=== PATIENT | male | born 1930 | race Caucasian/White ===

== ENCOUNTER 2017-02-28 07:08 | Emergency (ER) | payer MEDICARE ==
[2017-02-28 07:24] VITALS: BP 147/75
--- NOTE | 2017-02-28 07:53 | UC ---
Ear Complaint HPI - HPI Summary HPI Summary: PAST WEEK OR SO HAS NOTICED HEARING IS MUTED. RIGHT WORSE THAN LEFT. NO PAIN. NO URI SX. STATES HE HAS HAD TROUBLE WITH WAX BUILD-UP PAST 6 MONTHS OR SO AND HAS HAD EARS FLUSHED TWICE. WENT TO PCP YESTERDAY BUT THEY DO NOT DO EAR FLUSHES. WAS TOLD THEY WOULD SET HIM UP WITH ENT BUT DID NOT GET A CALL SO CAME HERE. - History of Current Complaint Chief Complaint: UCEar Stated Complaint: EARS ARE PLUGGED Time Seen by Provider: 02/28/17 07:44 Hx Obtained From: Patient Onset/Duration: Gradual Onset, Lasting Weeks, Still Present Severity Initially: Moderate Severity Currently: Moderate Pain Intensity: 0 Pain Scale Used: 0-10 Numeric Aggravating Factors: Nothing Alleviating Factors: Nothing Associated Signs/Symptoms: Positive: Hearing Loss - Allergies/Home Medications Allergies/Adverse Reactions: Allergies Allergy/AdvReac Type Severity Reaction Status Date / Time Penicillins Allergy Hives Verified 04/10/16 07:10 Home Medications: Home Medications Aspirin [Francisco Aspirin 325 MG] 325 mg PO 02/28/17 [History] Turin-3 Fatty Acids [Fish Oil] 1,000 mg PO 02/28/17 [History] PMH/Surg Hx/FS Hx/Imm Hx Endocrine History Of: Reports: Diabetes, Thyroid Disease, Hypothyroidism Cardiovascular History Of: Reports: Cardiac Disorders - [place] 02/25/2012, Hypertension - On meds, Myocardial Infarction Respiratory History Of: Denies: COPD, Asthma GI/ History Of: Denies: Ulcer - Surgical History Surgical History: Yes Surgery Procedure, Year, and Place: spinal stenosis - surgical repair -at 79 years old. TURP. left knee surg x2. fco - Family History Known Family History: Positive: Cardiac Disease, Hypertension - Social History Alcohol Use: None Substance Use Type: None Smoking Status (MU): Never Smoked Tobacco - Immunization History Most Recent Tetanus Shot: 02/04/13 Review of Systems Constitutional: Negative Skin: Negative ENT: Other - DECREASED HEARING Respiratory: Negative Cardiovascular: Negative Gastrointestinal: Negative All Other Systems Reviewed And Are Negative: Yes Physical Exam Triage Information Reviewed: Yes Appearance: Well-Appearing, No Pain Distress, Well-Nourished Vital Signs: Initial Vital Signs Temp 98.4 F 02/28/17 07:17 Pulse 58 02/28/17 07:17 Resp 16 02/28/17 07:17 BP 147/75 02/28/17 07:17 Pulse Ox 97 02/28/17 07:17 Vital Signs Reviewed: Yes Eyes: Positive: Conjunctiva Clear ENT: Positive: Hearing grossly normal, Pharynx normal, Other: - RIGHT EAC FULL OF WAX. LEFT EAC WITH SMALL AMOUNT OF NON OBSTRUCTIVE WAX Neck: Positive: Supple Respiratory: Positive: No respiratory distress, No accessory muscle use Cardiovascular: Positive: Pulses Normal Abdomen Description: Positive: Soft Musculoskeletal: Positive: No Edema Neurological: Positive: Alert Psychological: Positive: Age Appropriate Behavior Skin: Negative: rashes Ear Complaint Course/Dx - Course Course Of Treatment: BILATERAL EACS SUCCESSFULLY IRRIGATED BY RN. - Differential Dx/Diagnosis Provider Diagnoses: BILATERAL CERUMEN IMPACTION Discharge - Discharge Plan Condition: Stable Disposition: HOME Patient Education Materials: Cerumen Impaction (ED) Referrals: Guillermo Hightower MD [Medical Doctor] - If Needed Pj Nguyen MD [Primary Care Provider] - If Needed Additional Instructions: FOR MAINTENANCE, PUT SEVERAL DROPS OF OIL (MINERAL OIL, VEGETABLE OIL, OLIVE OIL , CANOLA OIL...) IN EACH EAR ONCE WEEKLY. YOU CAN ALSO USE THE OVER THE COUNTER EAR WAX TREATMENT. THIS WILL HELP KEEP THE WAX SOFT AND WILL HOPEFULLY PREVENT BUILDUP IN THE FUTURE. IF CERUMEN BUILDUP STILL OCCURS IT WILL LIKELY BE EASIER TO IRRIGATE. DO NOT USE QTIPS OTHER THAN TO CLEAN SUPERFICIALLY THIS PUSHES THE WAX FURTHER INTO THE EAR CANAL.
== END 2017-02-28 08:25 | disposition home or self-care (01) ==
LOC: UCEAST 07:08
DX: H61.23 Impacted cerumen, bilateral (principal); E11.9 Type 2 diabetes mellitus without complications; E03.9 Hypothyroidism, unspecified; I25.2 Old myocardial infarction; I10 Essential (primary) hypertension; Z88.0 Allergy status to penicillin
CPT/HCPCS: 99211; G0463

== ENCOUNTER 2017-08-16 14:26 | Emergency (ER) | payer MEDICARE, OTHER ==
[2017-08-16 14:36] VITALS: BP 130/57
--- NOTE | 2017-08-16 14:59 | UC ---
Ear Complaint HPI - HPI Summary HPI Summary: 87 YEAR OLD MALE PRESENTS WITH COMPLAINS OF RIGHT EAR CERUMEN IMPACTION. - History of Current Complaint Chief Complaint: UCEar Stated Complaint: EARS PLUGGED Time Seen by Provider: 08/16/17 14:57 Hx Obtained From: Patient Onset/Duration: Sudden Onset Severity Initially: Moderate Severity Currently: Moderate Pain Scale Used: 0-10 Numeric - 1 Associated Signs/Symptoms: Positive: Foreign Body Sensation - Allergies/Home Medications Allergies/Adverse Reactions: Allergies Allergy/AdvReac Type Severity Reaction Status Date / Time Penicillins Allergy Hives Verified 04/10/16 07:10 PMH/Surg Hx/FS Hx/Imm Hx Previously Healthy: Yes - Surgical History Surgical History: Yes Surgery Procedure, Year, and Place: spinal stenosis - surgical repair -at 79 years old. TURP. left knee surg x2. fco - Family History Known Family History: Positive: Cardiac Disease, Hypertension - Social History Alcohol Use: None Substance Use Type: None Smoking Status (MU): Never Smoked Tobacco - Immunization History Most Recent Tetanus Shot: 02/04/13 Review of Systems Constitutional: Negative Skin: Negative Eyes: Negative ENT: Other - RIGHT EAR CERUMEN IMPACTION Respiratory: Negative Cardiovascular: Negative Gastrointestinal: Negative Genitourinary: Negative Motor: Negative Neurovascular: Negative Musculoskeletal: Negative Neurological: Negative Psychological: Negative All Other Systems Reviewed And Are Negative: Yes Physical Exam Triage Information Reviewed: Yes Vital Signs: Initial Vital Signs Temp 36.5 C 08/16/17 14:33 Pulse 62 08/16/17 14:33 Resp 16 08/16/17 14:33 BP 130/57 08/16/17 14:33 Pulse Ox 99 08/16/17 14:33 Vital Signs Reviewed: Yes Eye Exam: Normal ENT Exam: Normal Dental Exam: Normal Neck exam: Normal Neck: Positive: 1 Respiratory Exam: Normal Cardiovascular Exam: Normal Abdominal Exam: Normal Musculoskeletal Exam: Normal Neurological Exam: Normal Psychological Exam: Normal Skin Exam: Normal Ear Complaint Course/Dx - Differential Dx/Diagnosis Provider Diagnoses: RIGHT EAR CERUMEN IMPACTION Discharge - Discharge Plan Condition: Stable Disposition: HOME Prescriptions: Neomyc/Polym/HC 1% OTIC SUSP* [Cortisporin Otic Susp 1%*] 4 drop RIGHT EAR QID # 1 btl Patient Education Materials: Cerumen Impaction (ED) Referrals: Pj Nguyen MD [Primary Care Provider] -
== END 2017-08-16 15:47 | disposition home or self-care (01) ==
LOC: UCEAST 14:26
DX: H61.21 Impacted cerumen, right ear (principal); Z88.0 Allergy status to penicillin
CPT/HCPCS: 99212; G0463

== ENCOUNTER 2018-08-03 16:03 | Emergency (ER) | payer MEDICARE, OTHER ==
--- OUTSIDE RECORDS SUMMARY | 2018-08-03 16:10 | XMS REPORT ---
:1930 External Reference #:[id number] [facility] Address [address] [place] [address] Phone [phone] Care Team Providers Name Role Phone Eva Mccabe MD Primary Care Physician Unavailable Payers Type Date Identification Numbers Payment Provider Subscriber Medicare Primary Effective: Policy Number: Medicare Manjeet Cabrera 1994 [id number] PayID: [id number] [facility] [address] [place] [address] Medigap Part B Policy Number: [id number] [facility] Benefit Plan Manjeet Naidu Latrell Group Number: [id number] [facility] PayID: [id number] [place] [address] Advance Directives Type Date Description Status Comment Other Directive 07/28/2015 Health Care Proxy Current and Verified Problems Date Description Provider Status Onset: 08/01/2011 Benign essential hypertension Pj Nguyen M.D. Active Onset: 08/01/2011 Gastroesophageal reflux disease Pj Nguyen M.D. Active Onset: 08/01/2011 Hypothyroidism Pj Nguyen M.D. Active Onset: 08/01/2011 Anxiety state Pj Nguyen M.D. Active Onset: 08/01/2011 Low back pain Pj Nguyen M.D. Active Onset: 02/29/2012 Coronary arteriosclerosis Pj Nguyen M.D. Active Onset: 07/13/2015 Enthesopathy of hip region Gris Costa M.D. 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 Active Onset: 09/09/2015 Pure hypercholesterolemia Pj Nguyen M.D. Active Onset: 02/26/2018 Dizziness and giddiness Oswaldo Otero M.D. Active Onset: 02/26/2018 Minimal cognitive impairment Oswaldo Otero M.D. Active Onset: 02/26/2018 Chronic fatigue syndrome Oswaldo Otero M.D. Active Onset: 04/02/2018 History of cerebrovascular accident Oswaldo Otero M.D. Active without residual deficits Onset: 04/02/2018 Altered mental status Oswaldo Otero M.D. Active Onset: 04/02/2018 Amnesia Oswaldo Otero M.D. Active Onset: 07/24/2018 Paroxysmal ventricular tachycardia Oswaldo Otero M.D. Active Family History Date Family Member(s) Problem(s) Comments General Cancer Father due to Cancer () - ? site; age 61 Mother due to Natural Causes () - age 90. ? 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 Hand Dominance Right-handed Cigarette Use Quit smoking in 1953 ETOH Use Denies alcohol use Smoking Patient is a former smoker Recreational Drug Use Never Used Drugs Daily Caffeine Consumes on average 1 cup of regular coffee per day Allergies, Adverse Reactions, Alerts Date Description Reaction Status Severity Comments 05/23/2007 PCN active Medications Medication Date Status Form Strength Qnty SIG Indications Ordering Provider Chlorothiazide 04/26 Active Tablets 250mg 90tab take 1 Ishaan s tablet by NAZARIO Manriquez mouth daily Valsartan 03/13 Active Tablets 80mg 90tab Take 1 Ishaan s Tablet By NAZARIO Manriquez Mouth Every Day Aspirin Active Tablets DR 325mg 1 po qd Simvastatin Active Tablets 10mg 90tab 1 by mouth Wyatt /0000 s every day Marla Terry M.D. Fish Oil Active Capsules 1000mg 1 by mouth Unknown every day Areds Active bid Unknown Glucosamine Active 1100 1 daily Unknown Complex Meloxicam Active Tablets 15mg 1 by mouth Unknown / every day Catheteters Active use 3 times Unknown daily Levoxyl Active Tablets 75mcg 90tab Take 1 Ishaan s Tablet By NAZARIO Manriquez Mouth Every Day Meloxicam 06/02 Hx Tablets 15mg 30tab take 1 tab M25.551 Gris s by mouth Igor, - with food M.D. 09/17 once a day /2016 Medrol 09/21 Hx TBPK 4mg 21uni as directed M54.16 ts Igor, - M.D. 10/10 Naproxen 06/12 Hx Tablets 500mg 60tab not taking 715.15 Gris s 1 tablet Igor, - with food M.D. 08/30 by mouth once a day Chlorothiazide 11/29 Hx Tablets 500mg 90tab Take 1 Pj E. s Tablet By Wendy, - Mouth Every M.D. Levothyroxine 01/09 Hx Tablets 75mcg 90tab Take 1 Pj E. s Tablet By Wendy, - Mouth Every M.D. Chlorothiazide 01/09 Hx Tablets 500mg 90tab Take 1 Pj E. s Tablet By Wendy, - Mouth Every M.D. Guiatuss ac 09/16 Hx Syrup 100-10mg/ 200ml 5-10 ml po 466.0 Wilfrido 5ML qid prn Zara Moran M.D.,[facility] 02/27 Azithromycin 09/16 Hx Tablets 250mg 6tabs 2 qd for 1 466.0 Wilfrido day, then 1 DTed Bullock, - qd Genna,[facility] 02/27 Ilotycin 09/16 Hx Ointment 5mg/GM 1tube topical 372.30 both eye Marla Bullock, - 5x/day Genna,FACP 02/27 Glucosamine 08/01 Hx Capsules 500mg 1 po bid Pj Santillan Zara Nguyen M.D. 09/17 Jointflex 08/01 Hx Cream 3.1% Pj Santillan Zara Nguyen M.D. 09/08 Remeron 10/05 Hx Tablets 15mg 30tab 1 cap hs s Abdi Zuñiga M.D. 01/31 Paxil 09/29 Hx Tablets 20mg 30tab 1/2 tab x 1 300.01 s week then 1 Pachikara - tab daily , Genna 10/05 Ambien 09/21 Hx Tablets 10mg 30tab / to 1 780.52 s tab hs prn Abdi Zuñiga M.D. 10/05 Buspirone HCL 10/07 Hx Tablets 10mg 90tab 1 1/2 po Pj Ted s bid Zara Nguyen M.D. 01/12 Omeprazole 08/[address] 20mg 90cap 1 po bid Pj Ted s Zara Nguyen M.D. 01/31 Neurontin 01/28 Hx Capsules 300mg 150ca 1 po qd for ps 2 Wendy, - days,bidx3d M.D. 07/13 ays tid Neurontin 09/19 Hx Capsules 300mg 90cap 1 po qd for Pj Santillan s 2 days then Wendy, - increase to M.D. 01/13 bid for days then tid. Glucosamine/Ramesh 09/10 Hx Capsules 1 PO qd Pj Santillan dro Zara Nguyen M.D. 08/01 Centrum Silver 09/10 Hx Tablets 1 PO qd Pj Santillan Zara Nguyen M.D. 02/27 Fluticasone 07/16 Hx Suspension 50mcg/Act 1unit 1 spray Pj Santillan Propionate s each Wendy, - nostril in M.DTed 01/13 Naproxen 10/01 Hx Tablets 500mg 90tab 1 po qd to Pj Ann2006 s tid prn Zara Nguyen M.D. 02/28 Zithromax Z-Bo 08/09 Hx Tablets 250mg 1Pack as per Pj Santillan directions Zara Nguyen M.D. 07/16 Naproxen 05/24 Hx Tablets 500mg 90tab 1 PO qd Pj Santillan s Zara Nguyen M.D. 10/01 Chlorthiazide Hx 500mg. 90uni 1 po qd Pj E. /0000 ts Zara Nguyen M.D. 09/08 Diovan Hx Tablets 80mg 90tab 1 by mouth Pj E. /0000 s every day Zara Nguyen M.D. 03/13 Diovan Hx Tablets 80mg 90tab Take 1 Pj E. /0000 s Tablet By Wendy - Mouth Every M.Marla Nitrostat Hx Tablets Sub 0.4mg 25tab one sl Unknown /0000 s q5min up to - 3 doses prn 03/06 Preservision 00 Hx Capsules Areds 2 take one Unknown Areds 2 /0000 cap in the - evening 10/10 Vitamin B 12 Hx Lozenges 250mcg by mouth Unknown /0000 every day - 02/25 Centrum Silver Hx Tablets 1 by mouth Unknown /0000 every day - 02/25 Medications Administered in Office Medication Date Status Form Strength Qnty SIG Indications Ordering Provider Inj, Administered Injection Kelsea Mccormack, 018 Tomasuman, FINISHING LAB TECHNICIAN 0.1 MG Technetium TC Administered Injection Wyatt D. 99M 018 Genna Terry Tetrofosmin, Per Unit Dose Up To 40 Millicuries Technetium TC Administered Injection Wyatt D. 99M 018 Genna Terry Tetrofosmin, Per Unit Dose Up To 40 Millicuries Influenza Administered Injection Unknown Virus Vaccine 015 Immunizations CPT Code Status Date Vaccine Lot # [id number] Given 07/14/2017 Influenza Virus Vaccine, Quadrivalent, Split, [id number] Preservative Free 14476 Given 09/09/2015 Tdap - Tetanus/Diptheria/Acellular Pertussis [id number] 55099 Given 07/30/2014 Influenza Virus Vaccine, Quadrivalent, Split, Preservative Free [id number] Given 03/06/2014 Pneumococcal Conjugate Vaccine 13 Valent For [id number] Intramuscular Use [id number] Given 08/01/2011 Fluzone Vaccine [id number] 15937 Given 09/03/2010 Influenza Virus 3Yrs & Over [id number] 94063 Given 08/20/2008 Influenza Virus 3Yrs & Over 62222 Given 08/28/2007 Influenza Virus 3Yrs & Over 81244 Given 07/20/2004 Td (History By Patient) 66077 Given Unknown Influenza Virus Vaccine, Quadrivalent, Split Virus, Im Use Vital Signs Date Vital Result Comment 07/27/2018 Height 67 inches 5'7" Weight 161.00 lb Heart Rate 62 /min BP Systolic Sitting 130 mmHg lue reg cuff BP Diastolic Sitting 58 mmHg lue reg cuff BP Systolic Standing 128 mmHg BP Diastolic Standing 62 mmHg Respiratory Rate 16 /min BMI (Body Mass Index) 25.2 kg/m2 Ejection Fraction 65-70% 04/06/2018 echo 07/24/2018 Height 67 inches 5'7" Weight 156.00 lb Heart Rate 62 /min BP Systolic Sitting 130 mmHg BP Diastolic Sitting 72 mmHg Respiratory Rate 16 /min BMI (Body Mass Index) 24.4 kg/m2 06/29/2018 Height 67 inches 5'7" Weight 162.00 lb w/shoes Heart Rate 54 /min BP Systolic Sitting 146 mmHg Lue reg cuff BP Diastolic Sitting 70 mmHg Lue reg cuff BP Systolic Standing 138 mmHg Lue reg cuff BP Diastolic Standing 72 mmHg Lue reg cuff BMI (Body Mass Index) 25.4 kg/m2 Ejection Fraction 65-70% Echo 04/06/18 04/02/2018 Height 67 inches 5'7" Weight 157.00 lb Heart Rate 64 /min BP Systolic Sitting 138 mmHg BP Diastolic Sitting 70 mmHg Respiratory Rate 16 /min BMI (Body Mass Index) 24.6 kg/m2 03/20/2018 Height 67 inches 5'7" Weight 158.25 lb Heart Rate 61 /min BP Systolic 136 mmHg BP Diastolic 76 mmHg Body Temperature 96.7 F O2 % BldC Oximetry 94 % BMI (Body Mass Index) 24.8 kg/m2 02/26/2018 Height 67 inches 5'7" Weight 160.38 lb Heart Rate 60 /min BP Systolic Sitting 126 mmHg BP Diastolic Sitting 78 mmHg Respiratory Rate 16 /min BMI (Body Mass Index) 25.1 kg/m2 11/22/2017 Height 67 inches 5'7" Weight 157.00 lb No shoes Heart Rate 60 /min BP Systolic Sitting 126 mmHg Rue reg cuff BP Diastolic Sitting 70 mmHg Rue reg cuff BP Systolic Standing 130 mmHg Rue reg cuff BP Diastolic Standing 72 mmHg Rue reg cuff Respiratory Rate 15 /min BMI (Body Mass Index) 24.6 kg/m2 Ejection Fraction 72% 04/25/2012-echo 11/16/2017 Weight 160.50 lb Heart Rate 59 /min BP Systolic Sitting 118 mmHg BP Diastolic Sitting 76 mmHg Body Temperature 96.4 F O2 % BldC Oximetry 94 % 09/18/2017 Height 67 inches 5'7" Weight 159.00 lb Heart Rate 59 /min BP Systolic Sitting 118 mmHg BP Diastolic Sitting 74 mmHg Body Temperature 98.1 F O2 % BldC Oximetry 93 % BMI (Body Mass Index) 24.9 kg/m2 09/01/2017 Height 67.5 inches 5'7.50" Weight 158.00 lb Heart Rate 76 /min BP Systolic 130 mmHg BP Diastolic 76 mmHg Body Temperature 97.5 F O2 % BldC Oximetry 97 % BMI (Body Mass Index) 24.4 kg/m2 07/14/2017 Height 67.5 inches 5'7.50" Weight 152.00 lb Heart Rate 57 /min BP Systolic 145 mmHg BP Diastolic 75 mmHg BMI (Body Mass Index) 23.5 kg/m2 06/02/2017 Height 67 inches 5'7" Weight 153.00 lb Heart Rate 61 /min BP Systolic 139 mmHg BP Diastolic 70 mmHg BMI (Body Mass Index) 24.0 kg/m2 04/26/2017 Height 67 inches 5'7" Weight 159.38 lb Heart Rate 62 /min BP Systolic 140 mmHg BP Diastolic 80 mmHg Body Temperature 97.8 F BMI (Body Mass Index) 25.0 kg/m2 03/16/2017 Height 67 inches 5'7" Weight 156.00 lb Heart Rate 60 /min BP Systolic Sitting 122 mmHg BP Diastolic Sitting 80 mmHg Respiratory Rate 15 /min Body Temperature 97.0 F O2 % BldC Oximetry 98 % BMI (Body Mass Index) 24.4 kg/m2 02/27/2017 Weight 158.00 lb Heart Rate 78 /min BP Systolic Sitting 132 mmHg BP Diastolic Sitting 82 mmHg Respiratory Rate 14 /min Body Temperature 98.2 F O2 % BldC Oximetry 97 % 10/11/2016 Height 67 inches 5'7" Weight 157.00 lb Heart Rate 56 /min BP Systolic Sitting 128 mmHg right arm, reg cuff BP Diastolic Sitting 68 mmHg right arm, reg cuff BP Systolic Standing 124 mmHg right arm, reg cuff BP Diastolic Standing 68 mmHg right arm, reg cuff Respiratory Rate 16 /min BMI (Body Mass Index) 24.6 kg/m2 Ejection Fraction 72% 04/25/12 09/21/2016 Height 67 inches 5'7" Weight 155.00 lb Pain Level 5 BMI (Body Mass Index) 24.3 kg/m2 09/15/2016 Weight 159.00 lb Heart Rate 59 /min BP Systolic Sitting 132 mmHg BP Diastolic Sitting 74 mmHg O2 % BldC Oximetry 94 % 09/05/2016 Height 67 inches 5'7" Weight 155.00 lb Heart Rate 58 /min BP Systolic 164 mmHg BP Diastolic 75 mmHg BMI (Body Mass Index) 24.3 kg/m2 04/13/2016 Heart Rate 59 /min BP Systolic Sitting 116 mmHg BP Diastolic Sitting 64 mmHg Body Temperature 98.1 F O2 % BldC Oximetry 98 % 03/15/2016 Height 66 inches 5'6" Weight 157.00 lb BP Systolic Sitting 138 mmHg BP Diastolic Sitting 62 mmHg Body Temperature 96.1 F BMI (Body Mass Index) 25.3 kg/m2 10/16/2015 Height 67 inches 5'7" Weight 159.50 lb w/ shoes Heart Rate 58 /min reg BP Systolic Sitting 112 mmHg Rue, reg cuff BP Diastolic Sitting 60 mmHg Rue, reg cuff BP Systolic Standing 108 mmHg Rue BP Diastolic Standing 54 mmHg Rue Respiratory Rate 18 /min BMI (Body Mass Index) 25.0 kg/m2 Ejection Fraction 72% as of 04/25/12 echo 09/09/2015 Height 67 inches 5'7" Weight 160.00 lb Heart Rate 60 /min BP Systolic 122 mmHg BP Diastolic 72 mmHg Body Temperature 97.3 F BMI (Body Mass Index) 25.1 kg/m2 07/13/2015 Height 67 inches 5'7" Weight 153.00 lb Pain Level 3 BMI (Body Mass Index) 24.0 kg/m2 06/12/2015 Height 67 inches 5'7" Weight 153.00 lb Heart Rate 143 /min BP Systolic 143 mmHg BP Diastolic 74 mmHg Pain Level 5 BMI (Body Mass Index) 24.0 kg/m2 04/09/2015 Weight 156.25 lb Heart Rate 61 /min BP Systolic Sitting 128 mmHg BP Diastolic Sitting 74 mmHg Body Temperature 98.4 F O2 % BldC Oximetry 98 % 03/09/2015 Height 66.75 inches 5'6.75" Weight 156.00 lb Heart Rate 60 /min BP Systolic Sitting 120 mmHg BP Diastolic Sitting 62 mmHg Body Temperature 97.0 F O2 % BldC Oximetry 98 % BMI (Body Mass Index) 24.6 kg/m2 10/10/2014 Height 66.75 inches 5'6.75" Weight 157.00 lb with shoes Heart Rate 62 /min regular BP Systolic Sitting 118 mmHg right arm reg cuff BP Diastolic Sitting 76 mmHg right arm reg cuff BP Systolic Standing 116 mmHg right arm reg cuff BP Diastolic Standing 80 mmHg right arm reg cuff Respiratory Rate 18 /min BMI (Body Mass Index) 24.8 kg/m2 09/08/2014 Height 66.75 inches 5'6.75" Weight 155.25 lb Heart Rate 60 /min BP Systolic Sitting 120 mmHg BP Diastolic Sitting 72 mmHg Body Temperature 96.7 F BMI (Body Mass Index) 24.5 kg/m2 03/06/2014 Height 66.75 inches 5'6.75" Weight 156.25 lb Heart Rate 64 /min BP Systolic Sitting 110 mmHg BP Diastolic Sitting 50 mmHg Body Temperature 98.5 F BMI (Body Mass Index) 24.7 kg/m2 10/03/2013 Height 66 inches 5'6" Weight 156.00 lb without shoes Heart Rate 54 /min reg BP Systolic Sitting 114 mmHg R arm reg cuff BP Diastolic Sitting 70 mmHg R arm reg cuff BP Systolic Standing 116 mmHg R arm reg cuff BP Diastolic Standing 70 mmHg R arm reg cuff Respiratory Rate 16 /min BMI (Body Mass Index) 25.2 kg/m2 09/13/2013 Heart Rate 58 /min BP Systolic Sitting 122 mmHg BP Diastolic Sitting 72 mmHg 09/06/2013 Weight 159.25 lb Heart Rate 63 /min BP Systolic Sitting 120 mmHg BP Diastolic Sitting 70 mmHg 08/05/2013 Weight 160.75 lb Heart Rate 64 /min BP Systolic Sitting 142 mmHg BP Diastolic Sitting 80 mmHg Body Temperature 96.9 F O2 % BldC Oximetry 97 % 03/06/2013 Height 67 inches 5'7" Weight 161.00 lb Heart Rate 68 /min BP Systolic Sitting 118 mmHg BP Diastolic Sitting 70 mmHg BMI (Body Mass Index) 25.2 kg/m2 02/07/2013 Height 67 inches 5'7" Weight 161.25 lb Heart Rate 72 /min BP Systolic Sitting 136 mmHg BP Diastolic Sitting 72 mmHg BMI (Body Mass Index) 25.3 kg/m2 08/31/2012 Height 67 inches 5'7" Weight 166.00 lb Heart Rate 68 /min BP Systolic Sitting 124 mmHg BP Diastolic Sitting 88 mmHg BMI (Body Mass Index) 26.0 kg/m2 02/29/2012 Height 67.5 inches 5'7.50" Weight 173.75 lb Heart Rate 80 /min BP Systolic Sitting 142 mmHg BP Diastolic Sitting 78 mmHg BMI (Body Mass Index) 26.8 kg/m2 09/16/2011 Weight 177.00 lb Heart Rate 82 /min BP Systolic Sitting 120 mmHg BP Diastolic Sitting 80 mmHg Body Temperature 97.8 F lt ear 08/01/2011 Height 66.75 inches 5'6.75" Weight 173.00 lb Heart Rate 72 /min BP Systolic Sitting 112 mmHg BP Diastolic Sitting 72 mmHg BMI (Body Mass Index) 27.3 kg/m2 01/31/2011 Height 68 inches 5'8" Weight 174.00 lb Heart Rate 62 /min BP Systolic Sitting 116 mmHg BP Diastolic Sitting 72 mmHg BMI (Body Mass Index) 26.5 kg/m2 10/19/2010 Weight 169.00 lb Heart Rate 60 /min BP Systolic Sitting 160 mmHg BP Diastolic Sitting 88 mmHg 09/29/2010 Heart Rate 60 /min BP Systolic 150 mmHg BP Diastolic 80 mmHg 09/21/2010 Heart Rate 55 /min BP Systolic Sitting 150 mmHg BP Diastolic Sitting 78 mmHg 09/06/2010 Weight 174.00 lb Heart Rate 67 /min BP Systolic Sitting 160 mmHg BP Diastolic Sitting 80 mmHg 07/08/2010 Weight 180.00 lb Heart Rate 55 /min BP Systolic Sitting 150 mmHg BP Diastolic Sitting 82 mmHg 01/12/2010 Height 67 inches 5'7" Weight 176.00 lb down 4# Heart Rate 56 /min BP Systolic Sitting 120 mmHg BP Diastolic Sitting 70 mmHg BMI (Body Mass Index) 27.6 kg/m2 10/07/2009 Weight 180.00 lb Heart Rate 60 /min BP Systolic Sitting 114 mmHg BP Diastolic Sitting 62 mmHg 09/03/2009 Weight 179.00 lb Heart Rate 60 /min BP Systolic Sitting 128 mmHg BP Diastolic Sitting 70 mmHg 08/03/2009 Heart Rate 60 /min BP Systolic Sitting 138 mmHg BP Diastolic Sitting 78 mmHg Body Temperature 96.9 F 07/13/2009 Weight 182.00 lb Heart Rate 60 /min BP Systolic Sitting 128 mmHg BP Diastolic Sitting 76 mmHg 04/06/2009 Height 66 inches 5'6" Weight 180.00 lb Heart Rate 56 /min BP Systolic Sitting 130 mmHg BP Diastolic Sitting 80 mmHg BMI (Body Mass Index) 29.0 kg/m2 01/13/2009 Height 68 inches 5'8" Weight 118.50 lb Heart Rate 55 /min BP Systolic Sitting 136 mmHg BP Diastolic Sitting 80 mmHg Respiratory Rate 16 /min BMI (Body Mass Index) 18.0 kg/m2 09/10/2008 Height 68 inches 5'8" Weight 182.00 lb Heart Rate 56 /min BP Systolic Sitting 144 mmHg BP Diastolic Sitting 80 mmHg BMI (Body Mass Index) 27.7 kg/m2 07/16/2008 Height 68 inches 5'8" Weight 179.00 lb Heart Rate 68 /min BP Systolic Sitting 150 mmHg BP Diastolic Sitting 90 mmHg BMI (Body Mass Index) 27.2 kg/m2 01/14/2008 Height 68 inches 5'8" Weight 180.00 lb Heart Rate 72 /min BP Systolic Sitting 122 mmHg BP Diastolic Sitting 80 mmHg BMI (Body Mass Index) 27.4 kg/m2 08/09/2007 Height 68 inches 5'8" Weight 182.00 lb Heart Rate 64 /min BP Systolic Sitting 136 mmHg BP Diastolic Sitting 84 mmHg BMI (Body Mass Index) 27.7 kg/m2 05/24/2007 Height 68 inches 5'8" Weight 178.00 lb Heart Rate 48 /min BP Systolic Sitting 114 mmHg BP Diastolic Sitting 70 mmHg BMI (Body Mass Index) 27.1 kg/m2 Results Test Date Test Result H/L Range Note Basic Metabolic Panel 04/05/2018 Sodium 137 mmol/L Low 139-145 Potassium 4.5 mmol/L 3.5-5.0 Chloride 103 mmol/L 101-111 Co2 Carbon Dioxide 26 mmol/L 22-32 Anion Gap 8 mmol/L 2-11 Glucose 94 mg/dL 70-100 Blood Urea Nitrogen 33 mg/dL High 6-24 Creatinine 1.61 mg/dL High 0.67-1.17 BUN/Creatinine Ratio 20.5 High 8-20 Calcium 9.2 mg/dL 8.6-10.3 Egfr Non- 40.6 >60 Egfr 52.2 >60 1 Lipid Profile (Trig/Chol/HDL) 03/06/2018 Triglycerides 65 mg/dL 2 Cholesterol 104 mg/dL 3 HDL Cholesterol 38.3 mg/dL 4 LDL Cholesterol 53 mg/dL 5 Laboratory test finding 02/26/2018 TSH (Thyroid Stim Horm) 5.06 mcIU/mL 0.34-5.60 Free T4 (Free Thyroxine) 0.82 ng/dL 0.61-1.12 Vitamin B12 And Folate Serum 02/26/2018 Vitamin B12 1151 pg/mL High 180- 914 6 Folic Acid (Folate) > 20.00 ng/mL >3.99 Laboratory test finding 02/26/2018 Erythrocyte Sed Rate 7 mm/Hr 0-40 Homocysteine 13 mcmol/L 7 Comp Metabolic Panel 02/26/2018 Sodium 139 mmol/L 139-145 Potassium 4.2 mmol/L 3.5-5.0 Chloride 108 mmol/L 101-111 Co2 Carbon Dioxide 27 mmol/L 22-32 Anion Gap 4 mmol/L 2-11 Calcium 9.3 mg/dL 8.6-10.3 Albumin 4.5 g/dL 3.2-5.2 Total Bilirubin 0.50 mg/dL 0.2-1.0 Glucose 82 mg/dL 70-100 Blood Urea Nitrogen 30 mg/dL High 6-24 Creatinine 1.55 mg/dL High 0.67-1.17 BUN/Creatinine Ratio 19.4 8-20 Total Protein 6.9 g/dL 6.4-8.9 Globulin 2.4 g/dL 2-4 Albumin/Globulin Ratio 1.9 1-3 Alkaline Phosphatase 71 U/L 34-104 Alt 21 U/L 7-52 Ast 23 U/L 13-39 Egfr Non- 42.4 >60 Egfr 54.6 >60 8 CBC Auto Diff 02/26/2018 White Blood Count 6.2 10^3/uL 3.5-10.8 Red Blood Count 4.48 10^6/uL 4.0-5.4 Hemoglobin 14.2 g/dL 14.0-18.0 Hematocrit 41 % Low 42-52 Mean Corpuscular Volume 92 fL 80-94 Mean Corpuscular Hemoglobin 32 pg High 27-31 Mean Corpuscular HGB Conc 35 g/dL 31-36 Red Cell Distribution Width 13 % 10.5-15 Platelet Count 130 10^3/uL Low 150-450 Mean Platelet Volume 8.5 um3 7.4-10.4 Abs Neutrophils 4.0 10^3/uL 1.5-7.7 Abs Lymphocytes 1.5 10^3/uL 1.0-4.8 Abs Monocytes 0.5 10^3/uL 0-0.8 Abs Eosinophils 0.3 10^3/uL 0-0.6 Abs Basophils 0 10^3/uL 0-0.2 Abs Nucleated RBC 0 10^3/uL Granulocyte % 64.2 % 38-83 Lymphocyte % 23.8 % Low 25-47 Monocyte % 7.3 % High 0-7 Eosinophil % 4.0 % 0-6 Basophil % 0.7 % 0-2 Nucleated Red Blood Cells % 0.2 Comp Metabolic Panel 03/15/2017 Sodium 138 mmol/L 133-145 9 Potassium 4.2 mmol/L 3.5-5.0 9 Chloride 106 mmol/L 101-111 9 Co2 Carbon Dioxide 26 mmol/L 22-32 9 Anion Gap 6 mmol/L 2-11 9 Glucose 91 mg/dL 70-100 9 Blood Urea Nitrogen 35 mg/dL High 6-24 9 Creatinine 1.64 mg/dL High 0.67-1.17 9 BUN/Creatinine Ratio 21.3 High 8-20 9 Calcium 9.3 mg/dL 8.6-10.3 9 Total Protein 7.0 g/dL 6.4-8.9 9 Albumin 4.4 g/dL 3.2-5.2 9 Globulin 2.6 g/dL 2-4 9 Albumin/Globulin Ratio 1.7 1-3 9 Total Bilirubin 1.00 mg/dL 0.2-1.0 9 Alkaline Phosphatase 55 U/L 34-104 9 Alt 20 U/L 7-52 9 Ast 21 U/L 13-39 9 Egfr Non- 39.8 >60 9 Egfr 51.2 >60 9, 10 Lipid Profile (Trig/Chol/HDL) 03/15/2017 Triglycerides 77 mg/dL 9, 11 Cholesterol 110 mg/dL 9, 12 HDL Cholesterol 43.4 mg/dL 9, 13 LDL Cholesterol 51 mg/dL 9, 14 Laboratory test finding 03/15/2017 TSH (Thyroid Stim 3.93 mcIU/mL 0.34- 5.60 9, 15 Horm) Comp Metabolic Panel 03/15/2017 Sodium 140 mmol/L 133-145 9 Potassium 4.5 mmol/L 3.5-5.0 9 Chloride 107 mmol/L 101-111 9 Co2 Carbon Dioxide 28 mmol/L 22-32 9 Anion Gap 5 mmol/L 2-11 9 Glucose 98 mg/dL 70-100 9 Blood Urea Nitrogen 32 mg/dL High 6-24 9 Creatinine 1.51 mg/dL High 0.67-1.17 9 BUN/Creatinine Ratio 21.2 High 8-20 9 Calcium 9.4 mg/dL 8.6-10.3 9 Total Protein 6.9 g/dL 6.4-8.9 9 Albumin 4.4 g/dL 3.2-5.2 9 Globulin 2.5 g/dL 2-4 9 Albumin/Globulin Ratio 1.8 1-3 9 Total Bilirubin 0.80 mg/dL 0.2-1.0 9 Alkaline Phosphatase 64 U/L 34-104 9 Alt 22 U/L 7-52 9 Ast 22 U/L 13-39 9 Egfr Non- 43.8 >60 9 Egfr 56.4 >60 9, 16 Lipid Profile (Trig/Chol/HDL) 03/15/2017 Triglycerides 67 mg/dL 9, 17 Cholesterol 100 mg/dL 9, 18 HDL Cholesterol 38.3 mg/dL 9, 19 LDL Cholesterol 48 mg/dL 9, 20 Laboratory test finding 03/15/2017 TSH (Thyroid Stim 5.24 mcIU/mL 0.34- 5.60 9, 21 Horm) Comp Metabolic Panel 03/16/2016 Sodium 138 mmol/L 133-145 Potassium 4.2 mmol/L 3.5-5.0 Chloride 104 mmol/L 101-111 Co2 Carbon Dioxide 29 mmol/L 22-32 Anion Gap 5 mmol/L 2-11 Glucose 82 mg/dL 70-100 Blood Urea Nitrogen 27 mg/dL High 6-24 Creatinine 1.56 mg/dL High 0.67-1.17 BUN/Creatinine Ratio 17.3 8-20 Calcium 9.0 mg/dL 8.6-10.3 Total Protein 6.6 g/dL 6.4-8.9 Albumin 4.3 g/dL 3.2-5.2 Globulin 2.3 g/dL 2-4 Albumin/Globulin Ratio 1.9 1-3 Total Bilirubin 0.80 mg/dL 0.2-1.0 Alkaline Phosphatase 61 U/L 34-104 Alt 31 U/L 7-52 Ast 27 U/L 13-39 Egfr Non- 42.3 >60 Egfr 54.4 >60 22 Lipid Profile (Trig/Chol/HDL) 09/02/2015 Triglycerides 57 mg/dL 23 Cholesterol 104 mg/dL 24 HDL Cholesterol 42.7 mg/dL 25 LDL Cholesterol 50 mg/dL 26 Comp Metabolic Panel 09/02/2015 Sodium 134 mmol/L 133-145 Potassium 4.6 mmol/L 3.5-5.0 Chloride 100 mmol/L Low 101-111 Co2 Carbon Dioxide 26 mmol/L 22-32 Anion Gap 8 mmol/L 2-11 Glucose 79 mg/dL 70-100 Blood Urea Nitrogen 28 mg/dL High 6-24 Creatinine 1.63 mg/dL High 0.67-1.17 BUN/Creatinine Ratio 17.2 8-20 Calcium 9.3 mg/dL 8.6-10.3 Total Protein 6.7 g/dL 6.4-8.9 Albumin 4.4 g/dL 3.2-5.2 Globulin 2.3 g/dL 2-4 Albumin/Globulin Ratio 1.9 1-3 Total Bilirubin 1.00 mg/dL 0.2-1.0 Alkaline Phosphatase 54 U/L 34-104 Alt 22 U/L 7-52 Ast 23 U/L 13-39 Egfr Non- 40.3 >60 Egfr 51.8 >60 27 Laboratory test finding 09/02/2015 TSH (Thyroid Stim Horm) 5.36 ?IU/mL 0.34-5.60 28 CBC Auto Diff 09/02/2015 White Blood Count 5.8 10^3/uL 4.8-10.8 Red Blood Count 4.56 10^6/uL 4.0-5.4 Hemoglobin 14.4 g/dL 14.0-18.0 Hematocrit 43 % 42-52 Mean Corpuscular Volume 95 fL High 80-94 Mean Corpuscular Hemoglobin 32 pg High 27-31 Mean Corpuscular HGB Conc 33 g/dL 31-36 Red Cell Distribution Width 13 % 10.5-15 Platelet Count 142 10^3/uL Low 150-450 Mean Platelet Volume 9 um3 7.4-10.4 Abs Neutrophils 3.4 10^3/uL 1.5-7.7 Abs Lymphocytes 1.7 10^3/uL 1.0-4.8 Abs Monocytes 0.5 10^3/uL 0-0.8 Abs Eosinophils 0.3 10^3/uL 0-0.6 Abs Basophils 0 10^3/uL 0-0.2 Abs Nucleated RBC 0 10^3/uL Granulocyte % 57.7 % 38-83 Lymphocyte % 28.5 % 25-47 Monocyte % 8.4 % 1-9 Eosinophil % 4.6 % 0-6 Basophil % 0.8 % 0-2 Nucleated Red Blood Cells % 0.1 CBC Auto Diff 09/05/2014 White Blood Count 5.8 10^3/uL 4.8-10.8 29 Red Blood Count 4.69 10^6/uL 4.0-5.4 29 Hemoglobin 14.6 g/dL 14.0-18.0 29 Hematocrit 43 % 42-52 29 Mean Corpuscular Volume 93 fL 80-94 29 Mean Corpuscular Hemoglobin 31 pg 27-31 29 Mean Corpuscular HGB Conc 34 g/dL 31-36 29 Red Cell Distribution Width 13 % 10.5-15 29 Platelet Count 137 10^3/uL Low 150-450 29 Mean Platelet Volume 9 um3 7.4-10.4 29 Abs Neutrophils 3.7 10^3/uL 1.5-7.7 29 Abs Lymphocytes 1.5 10^3/uL 1.0-4.8 29 Abs Monocytes 0.4 10^3/uL 0-0.8 29 Abs Eosinophils 0.2 10^3/uL 0-0.6 29 Abs Basophils 0 10^3/uL 0-0.2 29 Abs Nucleated RBC 0 10^3/uL 29 Granulocyte % 62.5 % 38-83 29 Lymphocyte % 26.1 % 25-47 29 Monocyte % 7.3 % 1-9 29 Eosinophil % 3.3 % 0-6 29 Basophil % 0.8 % 0-2 29 Nucleated Red Blood Cells % 0 29 Comp Metabolic Panel 09/05/2014 Sodium 137 mmol/L 133-145 29 Potassium 4.3 mmol/L 3.5-5.0 29, 30 Chloride 104 mmol/L 101-111 29 Co2 Carbon Dioxide 28 mmol/L 22-32 29 Anion Gap 5 mmol/L 2-11 29 Glucose 85 mg/dL 70-100 29 Blood Urea Nitrogen 27 mg/dL High 6-24 29 Creatinine 1.45 mg/dL High 0.67-1.17 29 BUN/Creatinine Ratio 18.6 8-20 29 Calcium 9.3 mg/dL 8.6-10.3 29 Total Protein 6.7 g/dL 6.4-8.9 29 Albumin 4.3 g/dL 3.2-5.2 29 Globulin 2.4 g/dL 2-4 29 Albumin/Globulin Ratio 1.8 1-3 29 Total Bilirubin 1.00 mg/dL 0.2-1.0 29 Alkaline Phosphatase 64 U/L 34-104 29 Alt 25 U/L 7-52 29 Ast 24 U/L 13-39 29 Egfr Non- 46.3 >60 29 Egfr 59.5 >60 29, 31 Laboratory test finding 09/05/2014 Free T4 0.85 ng/mL 0.61-1.12 29, 32 TSH (Thyroid Stimulating Horm) 4.11 IU/mL 0.34-5.60 29, 33 Lipid Profile (Trig/Chol/HDL) 09/05/2014 Triglycerides 85 mg/dL 29, 34 Cholesterol 105 mg/dL 29, 35 HDL Cholesterol 41.1 mg/dL 29, 36 LDL Cholesterol 47 mg/dL 29, 37 CBC Auto Diff 09/04/2013 White Blood Count 6.1 10^3/uL 4.8-10.8 Red Blood Count 4.49 10^6/uL 4.0-5.4 Hemoglobin 14.3 g/dL 14.0-18.0 Hematocrit 41 % Low 42-52 Mean Corpuscular Volume 91 fL 80-94 Mean Corpuscular Hemoglobin 32 pg High 27-31 Mean Corpuscular HGB Conc 35 g/dL 31-36 Red Cell Distribution Width 13 % 10.5-15 Platelet Count 178 10^3/uL 150-450 Mean Platelet Volume 8 um3 7.4-10.4 Abs Neutrophils 3.5 10^3/uL 1.5-7.7 Abs Lymphocytes 1.8 10^3/uL 1.0-4.8 Abs Monocytes 0.4 10^3/uL 0-0.8 Abs Eosinophils 0.2 10^3/uL 0-0.6 Abs Basophils 0.1 10^3/uL 0-0.2 Abs Nucleated RBC 0.01 10^3/uL Neutrophil % 56 % 38-83 Lymphocytes % 34 % 25-47 Monocytes % 6 % 0-13 Eosinophils % 4 % 0-6 RBC Morphology Normal Normal Comp Metabolic Panel 09/04/2013 Sodium 133 mmol/L 133-145 Potassium 4.5 mmol/L 3.5-5.0 Chloride 101 mmol/L 101-111 Co2 Carbon Dioxide 28.0 mmol/L 22-32 Anion Gap 4.0 mmol/L 2-11 Glucose 84 mg/dL 70-100 Blood Urea Nitrogen 27 mg/dL High 6-24 Creatinine 1.30 mg/dL 0.50-1.40 BUN/Creatinine Ratio 20.8 High 8-20 Calcium 9.1 mg/dL 8.1-9.9 Total Protein 6.1 g/dL Low 6.2-8.1 Albumin 4.0 g/dL 3.2-5.2 Globulin 2.1 g/dL 2-4 Albumin/Globulin Ratio 1.9 1-3 Total Bilirubin 0.8 mg/dL 0.4-1.5 Alkaline Phosphatase 71 U/L 30-110 Alt 26 U/L 14-54 Ast 21 U/L 12-42 Egfr Non- 52.6 >60 Egfr 67.6 >60 38 Lipid Profile (Trig/Chol/HDL) 09/04/2013 Triglycerides 83 mg/dL 40-200 Cholesterol 112 mg/dL Less than 200 HDL Cholesterol 33 mg/dL Low 40-60 39 Cholesterol/HDL Ratio 3.4 Average 1-4.44 LDL Cholesterol 62.4 Less Than 100 40 Laboratory test finding 09/04/2013 TSH (Thyroid 2.13 miu/mL 0.34-5.60 41 Stimulating Horm) Urine Culture And 08/25/2013 Urine Culture (SEE NOTE) 42 Sensitivities Laboratory test finding 03/05/2013 TSH (Thyroid 5.18 miu/mL 0.34-5.60 Stimulating Horm) Lipid Profile 09/03/2012 Triglycerides 152 mg/dL 40-200 (Trig/Chol/HDL) Cholesterol 114 mg/dL Less than 200 43 HDL Cholesterol 38 mg/dL Low 40-60 44 Cholesterol/HDL Ratio 3.0 AVERAGE 1-4.44 LDL Cholesterol 45.6 mg/dL Less Than 100 45 Laboratory test finding 09/03/2012 Ast 27 U/L 12-42 46 Alt 25 U/L 14-54 47 Basic Metabolic Panel 09/03/2012 Sodium 137 mmol/L 133-145 Potassium 4.4 mmol/L 3.5-5.0 Chloride 104 mmol/L 101-111 Co2 Carbon Dioxide 28.0 mmol/L 22-32 Anion Gap 5.0 mmol/L 2-11 Glucose 94 mg/dL 70-100 Blood Urea Nitrogen 17 mg/dL 6-24 Creatinine 1.30 mg/dL 0.50-1.40 BUN/Creatinine Ratio 13.1 8-20 Calcium 9.4 mg/dL 8.1-9.9 Egfr Non- 52.7 >60 Egfr 67.8 >60 48 Thyroid Panel 02/25/2012 Free Thyroxine 0.81 ng/dL 0.61-1.24 Thyroxine 6.3 g/dL 5-12 TSH 3.78 MIU/ML 0.34-5.60 Laboratory test finding 02/25/2012 CPK (Creatine Kinase) 103 U/L 0-200 Troponin-I 19.79 NG/ML High 0-0.06 49 Comp Metabolic Panel 02/25/2012 Sodium 134 mmol/L Low 135-145 Potassium 4.1 mmol/L 3.5-5.0 Chloride 101 mmol/L 101-111 Co2 (Carbon Dioxide) 27.0 mmol/L 22-32 Anion Gap 6.0 mmol/L 2-11 50 Glucose 131 mg/dL High 70-100 BUN 23 mg/dL 6-24 Creatinine 1.7 mg/dL High 0.50-1.40 One Over Creatinine 0.58 BUN/Creatinine Ratio 13.5 8-20 Calcium 9.1 mg/dL 8.1-9.9 Total Protein 6.9 GM/DL 6.2-8.1 Albumin 4.3 GM/DL 3.2-5.2 Globulin 2.6 GM/DL 2-4 Albumin/Globulin Ratio 1.7 1-3 Bilirubin Total 0.9 mg/dL 0.4-1.5 51 Alkaline Phosphatase 72 U/L 39-117 Alt (SGPT) 22 U/L 17-63 Ast (Sgot) 23 U/L 12-42 eGFR Non- 38.7 > 60 eGFR 49.7 > 60 52 CBC Auto Diff 02/25/2012 White Blood Count 7.9 CUMM 4.8-10.8 Red Cell Count 4.46 CUMM Low 4.6-6.2 Hemoglobin 15.0 g/dL 14.0-18.0 Hematocrit 41 % Low 42-52 Mean Corpuscular Volume 93 um3 80-94 Mean Corpuscular Hemoglob 34 pg High 27-31 Mean Corpuscular HGB Cone 36 g/dL 32-36 Redcell Distribution WDTH 13 % 10.5-15 Platelet Count 143 CUMM Low 150-450 Mean Platelet Volume 8.9 um3 7.4-10.4 Gran % 80.6 % 38-83 Lymph % 13.4 % Low 25-47 Mononuclear % 4.0 % 1-9 Eosinophil % 1.5 % 0-6 Basophil % 0.5 % 0-2 Abs Lymphs 1.1 1.0-4.8 Abs Mononuclear 0.3 0-0.8 Absolute Neutrophil Count 6.4 1.5-7.7 Abs Eosinophils 0.1 0-0.6 Abs Basophils 0 0-0.2 53 MRSA/Vre Screen 02/25/2012 M <SEE NOTE> 54 Lipid Profile 02/07/2012 Triglyceride 134 mg/dL 40-200 (Trig/Chol/HDL) Cholesterol 135 mg/dL Less Than 200 55 High Density Lipoprotein 34 mg/dL Low 40-60 56 Cholesterol/HDL Ratio 3.97 AVERAGE 1-4.97 Low Density Lipoprotein 74 mg/dL Less Than 100 57 Laboratory test finding 02/07/2012 TSH 4.89 MIU/ML 0.34-5.60 Comp Metabolic Panel 02/07/2012 Sodium 138 mmol/L 135-145 Potassium 4.2 mmol/L 3.5-5.0 Chloride 105 mmol/L 101-111 Co2 (Carbon Dioxide) 28.0 mmol/L 22-32 Anion Gap 5.0 mmol/L 2-11 58 Glucose 92 mg/dL 70-100 BUN 18 mg/dL 6-24 Creatinine 1.5 mg/dL High 0.50-1.40 One Over Creatinine 0.66 BUN/Creatinine Ratio 12.0 8-20 Calcium 9.0 mg/dL 8.1-9.9 Total Protein 6.3 GM/DL 6.2-8.1 Albumin 4.3 GM/DL 3.2-5.2 Globulin 2.0 GM/DL 2-4 Albumin/Globulin Ratio 2.2 1-3 Bilirubin Total 1.3 mg/dL 0.4-1.5 59 Alkaline Phosphatase 66 U/L 39-117 Alt (SGPT) 23 U/L 17-63 Ast (Sgot) 25 U/L 12-42 eGFR Non- 44.7 > 60 eGFR 57.5 > 60 60 Laboratory test finding 02/07/2012 PSA,Diagnostic 0.50 NG/ML 0-4 61 Basic Metabolic Panel 02/16/2011 Sodium 141 mmol/L 135-145 Potassium 3.9 mmol/L 3.5-5.0 Chloride 106 mmol/L 101-111 Co2 (Carbon Dioxide) 29.0 mmol/L 22-32 Anion Gap 6.0 mmol/L 2-11 62 Glucose 92 mg/dL 70-100 BUN 14 mg/dL 6-24 Creatinine 1.30 mg/dL 0.50-1.40 One Over Creatinine 0.70 BUN/Creatinine Ratio 10.8 8-20 Calcium 9.2 mg/dL 8.1-9.9 eGFR Non- 52.8 > 60 eGFR 68.0 > [address] Nguyen's Lab Panel 01/12/2011 TSH 3.57 MIU/ML 0.34-5.60 Comp Metabolic Panel 01/12/2011 Sodium 139 mmol/L 135-145 Potassium 3.7 mmol/L 3.5-5.0 Chloride 103 mmol/L 101-111 Co2 (Carbon Dioxide) 28.0 mmol/L 22-32 Anion Gap 8.0 mmol/L 2-11 64 Glucose 83 mg/dL 70-100 BUN 21 mg/dL 6-24 Creatinine 1.60 mg/dL High 0.50-1.40 One Over Creatinine 0.60 BUN/Creatinine Ratio 13.1 8-20 Calcium 9.4 mg/dL 8.1-9.9 Total Protein 6.8 GM/DL 6.2-8.1 Albumin 4.3 GM/DL 3.2-5.2 Globulin 2.5 GM/DL 2-4 Albumin/Globulin Ratio 1.7 1-3 Bilirubin Total 1.1 mg/dL 0.4-1.5 65 Alkaline Phosphatase 67 U/L 39-117 Alt (SGPT) 21 U/L 17-63 Ast (Sgot) 23 U/L 12-42 eGFR Non- 41.6 > 60 eGFR 53.5 > 60 66 Lipid Profile (Trig/Chol/HDL) 01/12/2011 Triglyceride 160 mg/dL 40-200 Cholesterol 152 mg/dL Less Than 200 67 High Density Lipoprotein 37 mg/dL Low 40-60 68 Cholesterol/HDL Ratio 4.11 AVERAGE 1-4.97 Low Density Lipoprotein 83 mg/dL Less Than 100 69 CBC Auto Diff 01/12/2011 White Blood Count 5.5 CUMM 4.8-10.8 Red Cell Count 4.83 CUMM 4.6-6.2 Hemoglobin 15.7 g/dL 14.0-18.0 Hematocrit 45 % 42-52 Mean Corpuscular Volume 93 um3 80-94 Mean Corpuscular Hemoglob 33 pg High 27-31 Mean Corpuscular HGB Cone 35 g/dL 32-36 Redcell Distribution WDTH 13 % 10.5-15 Platelet Count 138 CUMM Low 150-450 Mean Platelet Volume 9.3 um3 7.4-10.4 Gran % 61.7 % 38-83 Lymph % 25.8 % 25-47 Mononuclear % 7.7 % 1-9 Eosinophil % 4.2 % 0-6 Basophil % 0.6 % 0-2 Abs Lymphs 1.4 1.0-4.8 Abs Mononuclear 0.4 0-0.8 Absolute Neutrophil Count 3.4 1.5-7.7 Abs Eosinophils 0.2 0-0.6 Abs Basophils 0 0-0.2 Laboratory test finding 01/12/2011 Thyroxine Free 0.77 ng/dL 0.61-1.24 Urinalysis W/Microscopic 10/12/2010 Ua Color SHEYLA Yellow Appearance-Urine CLEAR Clear Specific [place]-Ur 1.023 1.010-1.030 Esterase-Urine TRACE Negative Nitrite NEGATIVE Negative [id number] NEGATIVE Negative Protein-Urine NEGATIVE Negative PH-Urine 5.0 5-9 Blood-Urine NEGATIVE Negative Ketones-Urine NEGATIVE Negative Bilirubin-Ur NEGATIVE Negative Glucose-Urine NEGATIVE Negative WBC-Urine 8-12 0-5 RBC-Urine 0-2 0-2 Mucus Urine LARGE None Epith Cells-Ur RARE None Bacteria-Urine FEW None Amorphous Sed-U FEW None Laboratory test finding 10/12/2010 Amylase 70 U/L 20-120 70 Lipase 32 U/L 22-51 Comp Metabolic Panel 10/12/2010 Sodium 135 mmol/L 135-145 Potassium 4.1 mmol/L 3.5-5.0 Chloride 105 mmol/L 101-111 Co2 (Carbon Dioxide) 21.0 mmol/L Low 22-32 Anion Gap 9.0 mmol/L 2-11 71 Glucose 138 mg/dL High 70-100 72 BUN 23 mg/dL 6-24 Creatinine 1.30 mg/dL 0.50-1.40 One Over Creatinine 0.70 BUN/Creatinine Ratio 17.7 8-20 Calcium 9.3 mg/dL 8.1-9.9 Total Protein 7.4 GM/DL 6.2-8.1 Albumin 4.4 GM/DL 3.2-5.2 Globulin 3.0 GM/DL 2-4 Albumin/Globulin Ratio 1.5 1-3 Bilirubin Total 1.8 mg/dL High 0.4-1.5 73 Alkaline Phosphatase 78 U/L 39-117 Alt (SGPT) 30 U/L 17-63 Ast (Sgot) 35 U/L 12-42 eGFR Non- 56.3 > 60 eGFR 68.1 > 60 74 CBC With Electronic Diff 10/12/2010 White Blood Count 10.6 CUMM 4.8-10.8 Red Cell Count 5.20 CUMM 4.6-6.2 Hemoglobin 17.0 g/dL 14.0-18.0 Hematocrit 48 % 42-52 Mean Corpuscular Volume 92 um3 80-94 Mean Corpuscular Hemoglob 33 pg High 27-31 Mean Corpuscular HGB Cone 35 g/dL 32-36 Redcell Distribution WDTH 13 % 10.5-15 Platelet Count 191 CUMM 150-450 Mean Platelet Volume 7.0 um3 Low 7.4-10.4 Gran % 93.6 % High 38-83 Lymph % 3.4 % Low 25-47 Mononuclear % 2.2 % 1-9 Eosinophil % 0.5 % 0-6 Basophil % 0.3 % 0-2 Abs Lymphs 0.4 Low 1.0-4.8 Abs Mononuclear 0.2 0-0.8 Absolute Neutrophil Count 9.9 High 1.5-7.7 Abs Eosinophils 0.1 0-0.6 Abs Basophils 0 0-0.2 75 Fecal Lactoferrin (Stool WBC) 10/12/2010 Stool Specimen Description YELLOW 76 Stool Cult Sensitivity NF 77 Shiga Toxin 1 And 2 (Ehec) NEGATIVE BY IMMU <SEE NOTE> 78 Fecal Lactoferrin 10/12/2010 Fecal Lactoferrin TEST LIMITATIONS <SEE 79 (Stool WBC) (Stool WBC) NOTE> Fecal Lactoferrin (Stool WBC) POSITIVE BY IMMU <SEE NOTE> 80 C. Difficile Toxin A 10/12/2010 Fecal Lactoferrin (Stool POSITIVE BY IMMU < SEE 81 B WBC) NOTE> Stool Cult Sensitivity NF 82 Campylobacter Culture NF 83 O P: Giardia/Crypto 10/12/2010 O P: Giardia/Crypto Giardia and cryp 84 Screen Screen <SEE NOTE> O P: Giardia/Crypto Screen NEGATIVE BY IMMU <SEE NOTE> 85 Fecal Lactoferrin (Stool WBC) TEST LIMITATIONS <SEE NOTE> 86 Fecal Lactoferrin (Stool WBC) POSITIVE BY IMMU <SEE NOTE> 87 Stool Cult & Sensitivity 10/12/2010 Stool Specimen Description YELLOW 88 C. Difficile Toxin A B NEGATIVE BY IMMU <SEE NOTE> 89 C. Difficile Toxin A B TEST LIMITATIONS <SEE NOTE> 90 Fecal Lactoferrin (Stool WBC) TEST LIMITATIONS <SEE NOTE> 91 Fecal Lactoferrin (Stool WBC) POSITIVE BY IMMU <SEE NOTE> 92 Basic Metabolic Panel 09/28/2010 Sodium 135 mmol/L 135-145 Potassium 3.9 mmol/L 3.5-5.0 Chloride 101 mmol/L 101-111 Co2 (Carbon Dioxide) 27.0 mmol/L 22-32 Anion Gap 7.0 mmol/L 2-11 93 Glucose 105 mg/dL High 70-100 94 BUN 14 mg/dL 6-24 Creatinine 1.30 mg/dL 0.50-1.40 One Over Creatinine 0.70 BUN/Creatinine Ratio 10.8 8-20 Calcium 9.0 mg/dL 8.1-9.9 eGFR Non- 56.3 > 60 eGFR 68.1 > 60 95 Urinalysis W/Microscopic 09/20/2010 Ua Color YELLOW Yellow Appearance-Urine CLEAR Clear Specific [place]-Ur 1.013 1.010-1.030 Esterase-Urine TRACE Negative Nitrite NEGATIVE Negative [id number] NEGATIVE Negative Protein-Urine NEGATIVE Negative PH-Urine 5.0 5-9 Blood-Urine NEGATIVE Negative Ketones-Urine NEGATIVE Negative Bilirubin-Ur NEGATIVE Negative Glucose-Urine NEGATIVE Negative WBC-Urine 0-2 0-5 RBC-Urine NONE SEEN 0-2 Epith Cells-Ur RARE None Basic Metabolic Panel 09/20/2010 Sodium 130 mmol/L Low 135-145 Potassium 3.8 mmol/L 3.5-5.0 Chloride 102 mmol/L 101-111 Co2 (Carbon Dioxide) 24.0 mmol/L 22-32 Anion Gap 4.0 mmol/L 2-11 96 Glucose 107 mg/dL High 70-100 97 BUN 14 mg/dL 6-24 Creatinine 1.00 mg/dL 0.50-1.40 One Over Creatinine 1.00 BUN/Creatinine Ratio 14.0 8-20 Calcium 9.0 mg/dL 8.1-9.9 eGFR Non- 76.2 > 60 eGFR 92.2 > 60 98 Basic Metabolic Panel 07/29/2010 Sodium 136 mmol/L 135-145 Potassium 4.9 mmol/L 3.5-5.0 Chloride 103 mmol/L 101-111 Co2 (Carbon Dioxide) 28.0 mmol/L 22-32 Anion Gap 5.0 mmol/L 2-11 99 Glucose 87 mg/dL 70-100 100 BUN 17 mg/dL 6-24 Creatinine 1.30 mg/dL 0.50-1.40 One Over Creatinine 0.70 BUN/Creatinine Ratio 13.1 8-20 Calcium 9.1 mg/dL 8.1-9.9 eGFR Non- 56.3 > 60 eGFR 68.1 > 60 101 Laboratory test finding 07/29/2010 PSA,Diagnostic 0.62 NG/ML 0-4 DR Nguyen's Lab Panel 01/04/2010 TSH 2.74 MIU/ML 0.34-5.60 Comp Metabolic Panel 01/04/2010 Sodium 136 mmol/L 135-145 Potassium 4.2 mmol/L 3.5-5.0 Chloride 101 mmol/L 101-111 Co2 (Carbon Dioxide) 26.0 mmol/L 22-32 Anion Gap 9.0 mmol/L 2-11 102 Glucose 98 mg/dL 70-100 103 BUN 19 mg/dL 6-24 Creatinine 1.30 mg/dL 0.50-1.40 One Over Creatinine 0.70 BUN/Creatinine Ratio 14.6 8-20 Calcium 9.4 mg/dL 8.1-9.9 104 Total Protein 6.3 GM/DL 6.2-8.1 Albumin 4.2 GM/DL 3.2-5.2 Globulin 2.1 GM/DL 2-4 Albumin/Globulin Ratio 2.0 1-3 Bilirubin Total 1.3 mg/dL 0.4-1.5 105 Alkaline Phosphatase 75 U/L 39-117 Alt (SGPT) 24 U/L 17-63 Ast (Sgot) 26 U/L 12-42 eGFR Non- 56.5 > 60 eGFR 68.3 > 60 106 Lipid Profile (Trig/Chol/HDL) 01/04/2010 Triglyceride 120 mg/dL 40-200 Cholesterol 145 mg/dL Less Than 200 107 High Density Lipoprotein 34 mg/dL Low 40-60 108 Cholesterol/HDL Ratio 4.26 AVERAGE 1-4.97 Low Density Lipoprotein 87 mg/dL Less Than 100 109 CBC With Electronic Diff 01/04/2010 White Blood Count 6.1 CUMM 4.8-10.8 Red Cell Count 4.97 CUMM 4.6-6.2 Hemoglobin 15.8 g/dL 14.0-18.0 Hematocrit 45 % 42-52 Mean Corpuscular Volume 91 um3 80-94 Mean Corpuscular Hemoglob 32 pg High 27-31 Mean Corpuscular HGB Cone 35 g/dL 32-36 Redcell Distribution WDTH 13 % 10.5-15 Platelet Count 173 CUMM 150-450 Mean Platelet Volume 8.5 um3 7.4-10.4 Gran % 62.6 % 38-83 Lymph % 24.1 % Low 25-47 Mononuclear % 7.8 % 1-9 Eosinophil % 5.0 % 0-6 Basophil % 0.5 % 0-2 Abs Lymphs 1.5 1.0-4.8 Abs Mononuclear 0.5 0-0.8 Absolute Neutrophil Count 3.8 1.5-7.7 Abs Eosinophils 0.3 0-0.6 Abs Basophils 0 0-0.2 Laboratory test finding 01/04/2010 PSA Screening 0.42 NG/ML 0-4 110 Laboratory test finding 04/06/2009 Bleeding Time 4.0 MIN 2.5-9.5 111 Protime 04/06/2009 Inr 1.16 High 0.86-1.13 112 Protime 14.0 SEC High 10.67-13.64 113 Laboratory test finding 04/06/2009 PTT (Aptt) 25.9 20.1-28.2 114 Laboratory test finding 01/05/2009 TSH 3.90 MIU/ML 0.34-5.60 115 PSA Screening 0.58 NG/ML 0-4 115, 116 Lipid Profile (Trig/Chol/HDL) 01/05/2009 Triglyceride 112 mg/dL 40-200 115 Cholesterol 148 mg/dL Less Than 200 115, 117 High Density Lipoprotein 36 mg/dL Low 40-60 115, 118 Cholesterol/HDL Ratio 4.11 AVERAGE 1-4.97 115 Low Density Lipoprotein 90 mg/dL Less Than 100 115, 119 Comp Metabolic Panel 01/05/2009 Sodium 142 mmol/L 135-145 115 Potassium 4.9 mmol/L 3.5-5.0 115 Chloride 106 mmol/L 101-111 115 Co2 (Carbon Dioxide) 29.0 mmol/L 22-32 115 Anion Gap 7.0 mmol/L 2-11 115, 120 Glucose 96 mg/dL 70-100 115, 121 BUN 19 mg/dL 6-24 115 Creatinine 1.50 mg/dL High 0.50-1.40 115 One Over Creatinine 0.60 115 BUN/Creatinine Ratio 12.7 8-20 115 Calcium 9.6 mg/dL 8.1-9.9 115, 122 Total Protein 6.4 GM/DL 6.2-8.1 115 Albumin 4.1 GM/DL 3.2-5.2 115 Globulin 2.3 GM/DL 2-4 115 Albumin/Globulin Ratio 1.8 1-3 115 Bilirubin Total 1.2 mg/dL 0.4-1.5 115 Alkaline Phosphatase 77 U/L 39-117 115 Alt (SGPT) 23 U/L 17-63 115 Ast (Sgot) 23 U/L 12-42 115 CBC With Electronic Diff 01/05/2009 White Blood Count 6.6 CUMM 4.8-10.8 115 Red Cell Count 4.78 CUMM 4.6-6.2 115 Hemoglobin 15.6 g/dL 14.0-18.0 115 Hematocrit 44 % 42-52 115 Mean Corpuscular Volume 91 um3 80-94 115 Mean Corpuscular Hemoglob 33 pg High 27-31 115 Mean Corpuscular HGB Cone 36 g/dL 32-36 115 Redcell Distribution WDTH 13 % 10.5-15 115 Platelet Count 171 CUMM 150-450 115 Mean Platelet Volume 8.4 um3 7.4-10.4 115 Gran % 66.5 % 38-83 115 Lymph % 21.8 % Low 25-47 115 Mononuclear % 7.4 % 1-9 115 Eosinophil % 3.8 % 0-6 115 Basophil % 0.5 % 0-2 115 Abs Lymphs 1.4 1.0-4.8 115 Abs Mononuclear 0.5 0-0.8 115 Absolute Neutrophil Count 4.4 1.5-7.7 115 Abs Eosinophils 0.2 0-0.6 115 Abs Basophils 0 0-0.2 115, 123 Throat-Beta Strept 01/02/2009 Throat-Beta Strep Culture NF 124 Laboratory test finding 01/01/2008 PSA Screening 0.41 NG/ML 0-4 125 TSH 1.98 MIU/ML 0.34-5.60 Lipid Profile 01/01/2008 Cholesterol/HDL Ratio 4.36 AVERAGE 1-4.97 (Trig/Chol/HDL) Cholesterol 157 mg/dL Less Than 200 126 Triglyceride 169 mg/dL 40-200 High Density Lipoprotein 36 mg/dL Low 40-60 127 Low Density Lipoprotein 87 mg/dL Less Than 100 128 Comp Metabolic Panel 01/01/2008 One Over Creatinine 0.71 Anion Gap 8.0 mmol/L 2-11 129 Albumin/Globulin Ratio 1.9 1-3 Albumin 4.0 GM/DL 3.2-5.2 Alkaline Phosphatase 70 U/L 39-117 Alt (SGPT) 23 U/L 17-63 Ast (Sgot) 28 U/L 12-42 BUN 20 mg/dL 6-24 Calcium 9.3 mg/dL 8.7-10.2 Chloride 103 mmol/L 101-111 Co2 (Carbon Dioxide) 28.0 mmol/L 22-32 Globulin 2.1 GM/DL 2-4 Glucose 98 mg/dL 70-105 Potassium 3.9 mmol/L 3.5-5.0 Sodium 139 mmol/L 135-145 Bilirubin Total 1.2 mg/dL 0.4-1.5 Total Protein 6.1 GM/DL Low 6.2-8.1 BUN/Creatinine Ratio 14.3 8-20 Creatinine 1.4 mg/dL 0.5-1.4 CBC With Electronic Diff 01/01/2008 White Blood Count 5.9 CUMM 4.8-10.8 Abs Basophils 0.1 0-0.2 Abs Eosinophils 0.3 0-0.6 Absolute Neutrophil Count 3.5 1.5-7.7 Abs Lymphs 1.6 1.0-4.8 Abs Mononuclear 0.5 0-0.8 Basophil % 0.9 % 0-2 Hematocrit 43 % 42-52 Hemoglobin 15.0 g/dL 14.0-18.0 Eosinophil % 5.7 % 0-6 Gran % 58.9 % 38-83 Lymph % 26.8 % 20-45 Mean Corpuscular HGB Cone 35 g/dL 32-36 Mean Corpuscular Hemoglob 31 pg 27-31 Mean Corpuscular Volume 88 um3 80-94 Mean Platelet Volume 9.3 um3 7.4-10.4 Mononuclear % 7.7 % 1-9 Platelet Count 163 CUMM 150-450 Red Cell Count 4.85 CUMM 4.6-6.2 Redcell Distribution WDTH 15 % 10.5-15 1 Because ethnic data is not always readily available, this report includes an eGFR for both -Americans and non- Americans. The National Kidney Disease Education Program (NKDEP) does not endorse the use of the MDRD equation for patients that are not between the ages of 18 and 70, are , have extremes of body size, muscle mass, or nutritional status, or are non- or non-. According to the National Kidney Foundation, irrespective of diagnosis, the stage of the disease is based on the level of kidney function: Stage Description GFR(mL/min/1.73 m(2)) 1 Kidney damage with normal or decreased GFR 90 2 Kidney damage with mild decrease in GFR 60-89 3 Moderate decrease in GFR 30-59 4 Severe decrease in GFR 15-29 5 Kidney failure <15 (or dialysis) 2 Desirable: <150 Borderline High: 150-199 High: 200-499 Very High: >500 3 Desirable: <200 Borderline High: 200-239 High: >239 4 Low: <40 Desirable: 40-60 High: >60 5 Desirable: <100 Near Optimal: 100-129 Borderline High: 130-159 High: 160-189 Very High: >189 6 Normal Range 180 to 914 Indeterminate Range 145 to 180 Deficient Range <145 7 REFERENCE VALUE <=13 (Fasting) ADDITIONAL INFORMATION This test was developed and its performance characteristics determined by [facility] in a manner consistent with CLIA requirements. This test has not been cleared or approved by the [place].S. Food and Drug Administration. Test Performed by: [facility] - [address] [address] 8 Because ethnic data is not always readily available, this report includes an eGFR for both -Americans and non- Americans. The National Kidney Disease Education Program (NKDEP) does not endorse the use of the MDRD equation for patients that are not between the ages of 18 and 70, are , have extremes of body size, muscle mass, or nutritional status, or are non- or non-. According to the National Kidney Foundation, irrespective of diagnosis, the stage of the disease is based on the level of kidney function: Stage Description GFR(mL/min/1.73 m(2)) 1 Kidney damage with normal or decreased GFR 90 2 Kidney damage with mild decrease in GFR 60-89 3 Moderate decrease in GFR 30-59 4 Severe decrease in GFR 15-29 5 Kidney failure <15 (or dialysis) 9 PT IS FASTING 10 Because ethnic data is not always readily available, this report includes an eGFR for both -Americans and non- Americans. The National Kidney Disease Education Program (NKDEP) does not endorse the use of the MDRD equation for patients that are not between the ages of 18 and 70, are , have extremes of body size, muscle mass, or nutritional status, or are non- or non-. According to the National Kidney Foundation, irrespective of diagnosis, the stage of the disease is based on the level of kidney function: Stage Description GFR(mL/min/1.73 m(2)) 1 Kidney damage with normal or decreased GFR 90 2 Kidney damage with mild decrease in GFR 60-89 3 Moderate decrease in GFR 30-59 4 Severe decrease in GFR 15-29 5 Kidney failure <15 (or dialysis) 11 Desirable <150 Borderline high 150-199 High 200-499 Very High >500 12 Desirable <200 Borderline high 200-239 High >239 13 Low <40 Desirable: 40-60 High: >60 14 Desirable: <100 mg/dL Near Optimal: 100-129 mg/dL Borderline High: 130-159 mg/dL High: 160-189 mg/dL Very High: >189 mg/dL 15 PT IS FASTING 16 Because ethnic data is not always readily available, this report includes an eGFR for both -Americans and non- Americans. The National Kidney Disease Education Program (NKDEP) does not endorse the use of the MDRD equation for patients that are not between the ages of 18 and 70, are , have extremes of body size, muscle mass, or nutritional status, or are non- or non-. According to the [employer], irrespective of diagnosis, the stage of the disease is based on the level of kidney function: Stage Description GFR(mL/min/1.73 m(2)) 1 Kidney damage with normal or decreased GFR 90 2 Kidney damage with mild decrease in GFR 60-89 3 Moderate decrease in GFR 30-59 4 Severe decrease in GFR 15-29 5 Kidney failure <15 (or dialysis) 17 Desirable: <150 Borderline High: 150-199 High: 200-499 Very High: >500 18 Desirable: <200 Borderline High: 200-239 High: >239 19 Low: <40 Desirable: 40-60 High: >60 20 Desirable: <100 Near Optimal: 100-129 Borderline High: 130-159 High: 160-189 Very High: >189 21 PT IS FASTING 22 Because ethnic data is not always readily available, this report includes an eGFR for both -Americans and non- Americans. The National Kidney Disease Education Program (NKDEP) does not endorse the use of the MDRD equation for patients that are not between the ages of 18 and 70, are , have extremes of body size, muscle mass, or nutritional status, or are non- or non-. According to the [employer], irrespective of diagnosis, the stage of the disease is based on the level of kidney function: Stage Description GFR(mL/min/1.73 m(2)) 1 Kidney damage with normal or decreased GFR 90 2 Kidney damage with mild decrease in GFR 60-89 3 Moderate decrease in GFR 30-59 4 Severe decrease in GFR 15-29 5 Kidney failure <15 (or dialysis) 23 Desirable <150 Borderline high 150-199 High 200-499 Very High >500 24 Desirable <200 Borderline high 200-239 High >239 25 Low <40 Desirable: 40-60 High: >60 26 Desirable: <100 mg/dL Near Optimal: 100-129 mg/dL Borderline High: 130-159 mg/dL High: 160-189 mg/dL Very High: >189 mg/dL 27 Because ethnic data is not always readily available, this report includes an eGFR for both -Americans and non- Americans. The National Kidney Disease Education Program (NKDEP) does not endorse the use of the MDRD equation for patients that are not between the ages of 18 and 70, are , have extremes of body size, muscle mass, or nutritional status, or are non- or non-. According to the National Kidney Foundation, irrespective of diagnosis, the stage of the disease is based on the level of kidney function: Stage Description GFR(mL/min/1.73 m(2)) 1 Kidney damage with normal or decreased GFR 90 2 Kidney damage with mild decrease in GFR 60-89 3 Moderate decrease in GFR 30-59 4 Severe decrease in GFR 15-29 5 Kidney failure <15 (or dialysis) 28 FASTING 10 HOUR 29 FASTING 30 Potassium reference range changed effective 08/31/14 31 Because ethnic data is not always readily available, this report includes an eGFR for both -Americans and non- Americans. The National Kidney Disease Education Program (NKDEP) does not endorse the use of the MDRD equation for patients that are not between the ages of 18 and 70, are , have extremes of body size, muscle mass, or nutritional status, or are non- or non-. According to the National Kidney Foundation, irrespective of diagnosis, the stage of the disease is based on the level of kidney function: Stage Description GFR(mL/min/1.73 m(2)) 1 Kidney damage with normal or decreased GFR 90 2 Kidney damage with mild decrease in GFR 60-89 3 Moderate decrease in GFR 30-59 4 Severe decrease in GFR 15-29 5 Kidney failure <15 (or dialysis) 32 FASTING 33 FASTING 34 Desirable <150 Borderline high 150-199 High 200-499 Very High >500 35 Desirable <200 Borderline high 200-239 High >239 36 Low <40 Desirable: 40-60 High: >60 37 Desirable <100 Near Optimal 100-129 Borderline high 130-159 High 160-189 Very High >189 38 Because ethnic data is not always readily available, this report includes an eGFR for both -Americans and non- Americans. The National Kidney Disease Education Program (NKDEP) does not endorse the use of the MDRD equation for patients that are not between the ages of 18 and 70, are , have extremes of body size, muscle mass, or nutritional status, or are non- or non-. According to the National Kidney Foundation, irrespective of diagnosis, the stage of the disease is based on the level of kidney function: Stage Description GFR(mL/min/1.73 m(2)) 1 Kidney damage with normal or decreased GFR 90 2 Kidney damage with mild decrease in GFR 60-89 3 Moderate decrease in GFR 30-59 4 Severe decrease in GFR 15-29 5 Kidney failure <15 (or dialysis) 39 HDL Interpretation: Undesirable: High Risk: Less than 40 mg/dL Desirable: Low Risk: Greater than 60 mg/dL 40 LDL Interpretation: Low Risk Optimal Level: LDL Less than 100 mg/dL Near or Above Optimal: LDL 100-129 mg/dL Borderline High Risk: LDL 130-159 mg/dL High Risk: LDL 160-189 mg/dL Very High Risk: LDL Greater than 189 mg/dL 41 FASTING 42 RUN DATE: 08/28/13 [facility] LAB LIVE PAGE 1 RUN TIME: [address] [place] [address] Specimen Inquiry Name: MANJEET CABRERA : [address]: Stephen Damon MD Acct: [id number] Unit: [id number] AGE: 83 Location: [facility] Re08/25/13 SEX: M Status: DEP ER SPEC: [id number] ROSALIE: 08/25/13-[address] [facility] [address]: Stephen Damon MD REQ: [id number] RECD: 08/26/13 STATUS: FRANCESCO REED DR: Pj Nguyen III, MD _ SOURCE: URINE [facility]: ORDERED: Urine Culture Procedure Result Verified Site Urine Culture Final 08/28/13- 0941 ML Organism 1 ENTEROBACTER AEROGENES [place] Count >100,000 (Many) CFU/ML 1. ENTEROBACTER AEROGENES [facility] RX --------- ------ Cefazolin R Cefepime <=1 S Ceftriaxone <=1 S Ciprofloxacin <=0.25 S Gentamicin <=1 S Imipenem 0.5 S Levofloxacin <=0.12 S Meropenem <=0.25 S Nitrofurantoin 128 R Tetracycline <=1 S Pipercillin/Tazobactam <=4 S Trimethoprim/Sulfamethoxazole <=20 S Amoxicillin/Clavulanic Acid R Aztreonam <=1 S Contact the Microbiology Department for any additional antibiotic reporting. END OF REPORT * ML=Testing performed at Main Lab DEPARTMENT OF PATHOLOGY, [address] [place] [address] Sebastián Lujan M.D. Director [facility] Permit #[id number] Desirable: Less than 200 MG/DL Borderline-High Risk: 200-239 MG/DL High-Risk: 240 MG/DL and over 44 HDL Interpretation: Undesirable: High Risk: Less than 40 MG/DL Desirable: Low Risk: Greater than 60 MG/DL 45 LDL Interpretation: Low Risk Optimal Level: LDL Less than 100 MG/DL Near or Above Optimal: LDL 100-129 MG/DL Borderline High Risk: LDL 130-159 MG/DL High Risk: LDL 160-189 MG/DL Very High Risk: LDL Greater than 189 MG/DL 46 FASTING 47 FASTING 48 Because ethnic data is not always readily available, this report includes an eGFR for both -Americans and non- Americans. The National Kidney Disease Education Program (NKDEP) does not endorse the use of the MDRD equation for patients that are not between the ages of 18 and 70, are , have extremes of body size, muscle mass, or nutritional status, or are non- or non-. According to the National Kidney Foundation, irrespective of diagnosis, the stage of the disease is based on the level of kidney function: Stage Description GFR(mL/min/1.73 m(2)) 1 Kidney damage with normal or decreased GFR 90 2 Kidney damage with mild decrease in GFR 60-89 3 Moderate decrease in GFR 30-59 4 Severe decrease in GFR 15-29 5 Kidney failure <15 (or dialysis) 49 New Reference Range and Interpretation effective 08/02/2002 TnI (ng/ml) INTERPRETATION Less Than 0.06 ng/mL NOT SUPPORTIVE OF DIAGNOSIS OF [place] 0.06 - 0.50 ng/ml INDETERMINATE: SUGGEST SERIAL STUDIES IF CLINICALLY INDICATED. Greater than 0.5 ng/mL CONSISTENT WITH DIAGNOSIS OF [place] . 50 Anion gap measurement may be of limited value in the presence of any alkalosis, especially in a combined acid base disorder. . 51 A metabolite of Naproxen, O-desmethylnaproxen, has been shown to interfere with the Jendrassik-Denisha method for measuring total bilirubin. Samples from patients who have taken Naproxen have shown spurious elevation in total bilirubin levels. 52 Because ethnic data is not always readily available, this report includes an eGFR for both -Americans and non- Americans. The National Kidney Disease Education Program (NKDEP) does not endorse the use of the MDRD equation for patients that are not between the ages of 18 and 70, are , have extremes of body size, muscle mass, or nutritional status, or are non- or non-. According to the National Kidney Foundation, irrespective of diagnosis, the stage of the disease is based on the level of kidney function: Stage Description GFR(mL/min/1.73 m(2)) 1 Kidney damage with normal or decreased GFR 90 2 Kidney damage with mild decrease in GFR 60-89 3 Moderate decrease in GFR 30-59 4 Severe decrease in GFR 15-29 5 Kidney failure <15 (or dialysis) 53 Lymphopenia % H H Check Failed 54 RUN DATE: 02/28/12 [facility] NMI LIVE PAGE 1 RUN TIME: 1133 Specimen Inquiry RUN USER: INTERFACE Name: MANJEET CABRERA Status: DIS IN Re02/25/12 Age/Sex: 82/M Unit#: [id number] Location: ICU : [birth year] SPEC #: [id number] ROSALIE: 02/25/12 STATUS: FRANCESCO REQ #: [id number] RECD: 02/25/[address] [facility] [address]: Lars June MD SOURCE: NOSE ENTR: 02/25/12-[address]: Pj Nguyen III, MD [facility]: ORDERED: MRSA/VRE CULT ACT WKST: B 02/28/12 #1 Procedure Result Verified Site > MRSA/VRE CULTURE Final 02/28/12- 1133 ML NO MRSA ISOLATED - [facility] Permit #[id number] [facility] [place]note 2] [facility] [place] [address] DEPARTMENT OF PATHOLOGY, [address] [place] [address] [facility] Permit #[id number] Genna Hernandez M.D. Plug Making Operator 55 CHOLESTEROL INTERPRETATION: Desirable: Less than 200 MG/DL Borderline-High Risk: 200-239 MG/DL High-Risk: 240 MG/DL and over 56 HDL INTERPRETATION: Undesirable: High Risk: Less than 40 MG/DL Desirable: Low Risk: Greater than 60 MG/DL 57 LDL INTERPRETATION: Low Risk Optimal Level: LDL Less than 100 MG/DL Near or Above Optimal: LDL 100-129 MG/DL Borderline High Risk: LDL 130-159 MG/DL High Risk: LDL 160-189 MG/DL Very High Risk: LDL Greater than 189 MG/DL 58 Anion gap measurement may be of limited value in the presence of any alkalosis, especially in a combined acid base disorder. . 59 A metabolite of Naproxen, O-desmethylnaproxen, has been shown to interfere with the Jendrassik-Denisha method for measuring total bilirubin. Samples from patients who have taken Naproxen have shown spurious elevation in total bilirubin levels. 60 Because ethnic data is not always readily available, this report includes an eGFR for both -Americans and non- Americans. The National Kidney Disease Education Program (NKDEP) does not endorse the use of the MDRD equation for patients that are not between the ages of 18 and 70, are , have extremes of body size, muscle mass, or nutritional status, or are non- or non-. According to the National Kidney Foundation, irrespective of diagnosis, the stage of the disease is based on the level of kidney function: Stage Description GFR(mL/min/1.73 m(2)) 1 Kidney damage with normal or decreased GFR 90 2 Kidney damage with mild decrease in GFR 60-89 3 Moderate decrease in GFR 30-59 4 Severe decrease in GFR 15-29 5 Kidney failure <15 (or dialysis) 61 * SERUM LEVELS OF PSA MEASURED USING THE [employer] ACCESS HYBRITECH IMMUNOASSAY SHOULD NOT BE INTERPRETED ABSOLUTE EVIDENCE OF THE PRESENCE OR ABSENCE OF DISEASE. THE PSA VALUE SHOULD BE USED IN CONJUNCTION WITH OTHER PERTINENT CLINICAL DIAGNOSTIC PROCEDURES. A PSA value in the range of 0.1 to 0.6 ng/ml is indeterminate if being used as an indicator of recurrent or residual disease. . The values obtained with different assay methods of kits cannot be used interchangeably. 62 Anion gap measurement may be of limited value in the presence of any alkalosis, especially in a combined acid base disorder. . 63 Because ethnic data is not always readily available, this report includes an eGFR for both -Americans and non- Americans. The National Kidney Disease Education Program (NKDEP) does not endorse the use of the MDRD equation for patients that are not between the ages of 18 and 70, are , have extremes of body size, muscle mass, or nutritional status, or are non- or non-. According to the National Kidney Foundation, irrespective of diagnosis, the stage of the disease is based on the level of kidney function: Stage Description GFR(mL/min/1.73 m(2)) 1 Kidney damage with normal or decreased GFR 90 2 Kidney damage with mild decrease in GFR 60-89 3 Moderate decrease in GFR 30-59 4 Severe decrease in GFR 15-29 5 Kidney failure <15 (or dialysis) 64 Anion gap measurement may be of limited value in the presence of any alkalosis, especially in a combined acid base disorder. . 65 A metabolite of Naproxen, O-desmethylnaproxen, has been shown to interfere with the Jendrassik-Tutuilla method for measuring total bilirubin. Samples from patients who have taken Naproxen have shown spurious elevation in total bilirubin levels. 66 Because ethnic data is not always readily available, this report includes an eGFR for both -Americans and non- Americans. The National Kidney Disease Education Program (NKDEP) does not endorse the use of the MDRD equation for patients that are not between the ages of 18 and 70, are , have extremes of body size, muscle mass, or nutritional status, or are non- or non-. According to the National Kidney Foundation, irrespective of diagnosis, the stage of the disease is based on the level of kidney function: Stage Description GFR(mL/min/1.73 m(2)) 1 Kidney damage with normal or decreased GFR 90 2 Kidney damage with mild decrease in GFR 60-89 3 Moderate decrease in GFR 30-59 4 Severe decrease in GFR 15-29 5 Kidney failure <15 (or dialysis) 67 CHOLESTEROL INTERPRETATION: Desirable: Less than 200 MG/DL Borderline-High Risk: 200-239 MG/DL High-Risk: 240 MG/DL and over 68 HDL INTERPRETATION: Undesirable: High Risk: Less than 40 MG/DL Desirable: Low Risk: Greater than 60 MG/DL 69 LDL INTERPRETATION: Low Risk Optimal Level: LDL Less than 100 MG/DL Near or Above Optimal: LDL 100-129 MG/DL Borderline High Risk: LDL 130-159 MG/DL High Risk: LDL 160-189 MG/DL Very High Risk: LDL Greater than 189 MG/DL 70 PLEASE NOTE NEW REFERENCE RANGE. 71 Anion gap measurement may be of limited value in the presence of any alkalosis, especially in a combined acid base disorder. . 72 Note change in reference range as of 06/19/08. The change was based on recommendations from the [place] [employer]. 73 A metabolite of Naproxen, O-desmethylnaproxen, has been shown to interfere with the Jendrassik-Tutuilla method for measuring total bilirubin. Samples from patients who have taken Naproxen have shown spurious elevation in total bilirubin levels. 74 Because ethnic data is not always readily available, this report includes an eGFR for both -Americans and non- Americans. The National Kidney Disease Education Program (NKDEP) does not endorse the use of the MDRD equation for patients that are not between the ages of 18 and 70, are , have extremes of body size, muscle mass, or nutritional status, or are non- or non-. According to the National Kidney Foundation, irrespective of diagnosis, the stage of the disease is based on the level of kidney function: Stage Description GFR(mL/min/1.73 m(2)) 1 Kidney damage with normal or decreased GFR 90 2 Kidney damage with mild decrease in GFR 60-89 3 Moderate decrease in GFR 30-59 4 Severe decrease in GFR 15-29 5 Kidney failure <15 (or dialysis) 75 Neutrophilia % Lymphopenia % 76 LIQUID NONFORMED 77 NO PATHOGENS TO DATE FINAL REPORT PENDING COMPLETION OF INCUBATION PERIOD 78 NEGATIVE BY IMMUNOCHROMATOGRAPHIC ASSAY NEGATIVE BY IMMUNOCHROMATOGRAPHIC ASSAY 79 TEST LIMITATIONS: Assay detects elevated levels of lactoferrin released from fecal leukocytes as a marker of intestinal inflammation. The test may not be appropriate in immunocompromised persons. Fecal samples from breast fed infants should not be used with this assay. 80 POSITIVE BY IMMUNOASSAY 81 POSITIVE BY IMMUNOASSAY 82 NEGATIVE FOR THE ENTERIC PATHOGENS - SALMONELLA, SHIGELLA, AEROMONAS, PLESIOMONAS AND YERSINIA. VIBRIO AND E. COLI 0157 NOT ROUTINELY TESTED FOR IN A STOOL CULTURE. PLEASE SUBMIT SAMPLE WITH SPECIFIC REQUEST FOR DESIRED ORGANISM(S). 83 NO GROWTH OF CAMPYLOBACTER AFTER 48 HOURS 84 Giardia and cryptosporidium antigen testing performed by immunoassay. If patient is immunocompromised or has traveled to or is from a developing country, a full ova and parasite exam with microscopic (OPMIC) is recommended. All samples will be held one month in case full ova and parasite testing is requested. Contact the Microbiology Department at [phone]. TEST LIMITATIONS: As with all diagnostic procedures, the results obtained should be used in conjunction with other clinical information available the physician. Negative results can occur in samples containing antigen below lower limits of detection of the assay. The use of colonic washes, aspirates or other diluted sample types has not been established and could affect the performance of the assay. Stool samples contaminated with an oily or particulate base (eg. Barium, mineral oil etc.) could interfere with the test and are not recommended. 85 NEGATIVE BY IMMUNOASSAY NEGATIVE BY IMMUNOASSAY 86 TEST LIMITATIONS: Assay detects elevated levels of lactoferrin released from fecal leukocytes as a marker of intestinal inflammation. The test may not be appropriate in immunocompromised persons. Fecal samples from breast fed infants should not be used with this assay. 87 POSITIVE BY IMMUNOASSAY 88 LIQUID NONFORMED 89 NEGATIVE BY IMMUNOASSAY 90 TEST LIMITATIONS: The performance of specimens from pediatric patients has not been evaluated. A positive test confirms the presence of toxins A and/or B only. A physician must use the test results in conjunction with other diagnostic procedures and the patient's clinical condition to establish a diagnosis of C.difficile-associated disease. Isolates of C. sordellii may react with this test due to immunological identitiy of the C. sordellii toxins. Two distinct groups have been identified that can harbor C. difficile asymptomatically at very high rates. Colonization rates of up to 50% and higher have been reported in infants and rates of up to 32% in cystic fibrosis patients. 91 TEST LIMITATIONS: Assay detects elevated levels of lactoferrin released from fecal leukocytes as a marker of intestinal inflammation. The test may not be appropriate in immunocompromised persons. Fecal samples from breast fed infants should not be used with this assay. 92 POSITIVE BY IMMUNOASSAY 93 Anion gap measurement may be of limited value in the presence of any alkalosis, especially in a combined acid base disorder. . 94 Note change in reference range as of 06/19/08. The change was based on recommendations from the [place] [employer]. 95 Because ethnic data is not always readily available, this report includes an eGFR for both -Americans and non- Americans. The National Kidney Disease Education Program (NKDEP) does not endorse the use of the MDRD equation for patients that are not between the ages of 18 and 70, are , have extremes of body size, muscle mass, or nutritional status, or are non- or non-. According to the National Kidney Foundation, irrespective of diagnosis, the stage of the disease is based on the level of kidney function: Stage Description GFR(mL/min/1.73 m(2)) 1 Kidney damage with normal or decreased GFR 90 2 Kidney damage with mild decrease in GFR 60-89 3 Moderate decrease in GFR 30-59 4 Severe decrease in GFR 15-29 5 Kidney failure <15 (or dialysis) 96 Anion gap measurement may be of limited value in the presence of any alkalosis, especially in a combined acid base disorder. . 97 Note change in reference range as of 06/19/08. The change was based on recommendations from the [place] [employer]. 98 Because ethnic data is not always readily available, this report includes an eGFR for both -Americans and non- Americans. The National Kidney Disease Education Program (NKDEP) does not endorse the use of the MDRD equation for patients that are not between the ages of 18 and 70, are , have extremes of body size, muscle mass, or nutritional status, or are non- or non-. According to the National Kidney Foundation, irrespective of diagnosis, the stage of the disease is based on the level of kidney function: Stage Description GFR(mL/min/1.73 m(2)) 1 Kidney damage with normal or decreased GFR 90 2 Kidney damage with mild decrease in GFR 60-89 3 Moderate decrease in GFR 30-59 4 Severe decrease in GFR 15-29 5 Kidney failure <15 (or dialysis) 99 Anion gap measurement may be of limited value in the presence of any alkalosis, especially in a combined acid base disorder. . 100 Note change in reference range as of 06/19/08. The change was based on recommendations from the [place] [employer]. 101 Because ethnic data is not always readily available, this report includes an eGFR for both -Americans and non- Americans. The National Kidney Disease Education Program (NKDEP) does not endorse the use of the MDRD equation for patients that are not between the ages of 18 and 70, are , have extremes of body size, muscle mass, or nutritional status, or are non- or non-. According to the National Kidney Foundation, irrespective of diagnosis, the stage of the disease is based on the level of kidney function: Stage Description GFR(mL/min/1.73 m(2)) 1 Kidney damage with normal or decreased GFR 90 2 Kidney damage with mild decrease in GFR 60-89 3 Moderate decrease in GFR 30-59 4 Severe decrease in GFR 15-29 5 Kidney failure <15 (or dialysis) 102 Anion gap measurement may be of limited value in the presence of any alkalosis, especially in a combined acid base disorder. . 103 Note change in reference range as of 06/19/08. The change was based on recommendations from the [place] [employer]. 104 Please note change in reference range effective 08 . 105 A metabolite of Naproxen, O-desmethylnaproxen, has been shown to interfere with the Jendrassik-Tutuilla method for measuring total bilirubin. Samples from patients who have taken Naproxen have shown spurious elevation in total bilirubin levels. 106 Because ethnic data is not always readily available, this report includes an eGFR for both -Americans and non- Americans. The National Kidney Disease Education Program (NKDEP) does not endorse the use of the MDRD equation for patients that are not between the ages of 18 and 70, are , have extremes of body size, muscle mass, or nutritional status, or are non- or non-. According to the National Kidney Foundation, irrespective of diagnosis, the stage of the disease is based on the level of kidney function: Stage Description GFR(mL/min/1.73 m(2)) 1 Kidney damage with normal or decreased GFR 90 2 Kidney damage with mild decrease in GFR 60-89 3 Moderate decrease in GFR 30-59 4 Severe decrease in GFR 15-29 5 Kidney failure <15 (or dialysis) 107 CHOLESTEROL INTERPRETATION: Desirable: Less than 200 MG/DL Borderline-High Risk: 200-239 MG/DL High-Risk: 240 MG/DL and over 108 HDL INTERPRETATION: Undesirable: High Risk: Less than 40 MG/DL Desirable: Low Risk: Greater than 60 MG/DL 109 LDL INTERPRETATION: Low Risk Optimal Level: LDL Less than 100 MG/DL Near or Above Optimal: LDL 100-129 MG/DL Borderline High Risk: LDL 130-159 MG/DL High Risk: LDL 160-189 MG/DL Very High Risk: LDL Greater than 189 MG/DL 110 * SERUM LEVELS OF PSA MEASURED USING THE [employer]Y HUEY ACCESS HYBRITECH IMMUNOASSAY SHOULD NOT BE INTERPRETED ABSOLUTE EVIDENCE OF THE PRESENCE OR ABSENCE OF DISEASE. THE PSA VALUE SHOULD BE USED IN CONJUNCTION WITH OTHER PERTINENT CLINICAL DIAGNOSTIC PROCEDURES. A PSA value in the range of 0.1 to 0.6 ng/ml is indeterminate if being used as an indicator of recurrent or residual disease. . 111 THE BLEEDING TIME MAY BE PROLONGED BY ANY OF THESE DRUGS:ASPIRIN,ACETAMINOPHEN,IBUPROFEN 112 Recommended INR for Patients on Oral Anticoagulants Prophylaxis 2.0 - 3.0 Treatment of thrombosis 2.0 - 3.0 Prevention of embolism 2.0 - 3.0 Prevention of embolism from prosthetic heart valves 2.5 - 3.5 113 ATTENTION EFFECTIVE 03/11/09, THE IMPLEMENTATION OF NEW COAGULATION ANLAYZERS HAS CAUSED A SIGNIFICANT DIFFERENCE FOR PROTIME RESULTS IN SECONDS. THEREFORE, DIAGNOSIS,TREATMENT,AND THERAPY MUST BE BASED ON THE INR VALUE ONLY. 114 PLEASE NOTE NEW REFERENCE RANGE EFFECTIVE 08. 115 PATIENT MAY HAVE RESULTS PER DOCTOR'S AUTHORIZATION. Questions regarding this report should be directed to your doctor. 116 * SERUM LEVELS OF PSA MEASURED USING THE [employer]Y HUEY ACCESS HYBRITECH IMMUNOASSAY SHOULD NOT BE INTERPRETED ABSOLUTE EVIDENCE OF THE PRESENCE OR ABSENCE OF DISEASE. THE PSA VALUE SHOULD BE USED IN CONJUNCTION WITH OTHER PERTINENT CLINICAL DIAGNOSTIC PROCEDURES. A PSA value in the range of 0.1 to 0.6 ng/ml is indeterminate if being used as an indicator of recurrent or residual disease. . 117 CHOLESTEROL INTERPRETATION: Desirable: Less than 200 MG/DL Borderline-High Risk: 200-239 MG/DL High-Risk: 240 MG/DL and over 118 HDL INTERPRETATION: Undesirable: High Risk: Less than 40 MG/DL Desirable: Low Risk: Greater than 60 MG/DL 119 LDL INTERPRETATION: Low Risk Optimal Level: LDL Less than 100 MG/DL Near or Above Optimal: LDL 100-129 MG/DL Borderline High Risk: LDL 130-159 MG/DL High Risk: LDL 160-189 MG/DL Very High Risk: LDL Greater than 189 MG/DL 120 Anion gap measurement may be of limited value in the presence of any alkalosis, especially in a combined acid base disorder. . 121 Note change in reference range as of 06/19/08. The change was based on recommendations from the [place] [employer]. 122 Please note change in reference range effective 08 . 123 H H Check Failed 124 NEGATIVE FOR GROUP A BETA STREPTOCOCCUS 125 * SERUM LEVELS OF PSA MEASURED USING THE [place] HUEY ACCESS HYBRITECH IMMUNOASSAY SHOULD NOT BE INTERPRETED ABSOLUTE EVIDENCE OF THE PRESENCE OR ABSENCE OF DISEASE. THE PSA VALUE SHOULD BE USED IN CONJUNCTION WITH OTHER PERTINENT CLINICAL DIAGNOSTIC PROCEDURES. A PSA value in the range of 0.1 to 0.6 ng/ml is indeterminate if being used as an indicator of recurrent or residual disease. . 126 Classification: Desirable . 127 Classification: Low . 128 CALCULATED LDL APPROXIMATES THE VALUE OF A DIRECT LDL MEASUREMENT. Classification: Optimal Level . 129 Anion gap measurement may be of limited value in the presence of any alkalosis, especially in a combined acid base disorder. . Procedures Date CPT Code Description Status 07/13/2018 50003 Stress Test Completed 07/13/2018 90780 Myocardial Perfusion Imaging Tomographic (Spect) Completed Multiple Studies 05/18/2018 48409 EEG Recording Awake & Drowsy Completed 04/13/2018 06666 Mobile Cardiovascular Telemetry Over 24 HR Up To 30 Completed Days 04/06/2018 64016 ECHO Transthoracic, Real-Time 2D With Doppler And Color Completed Flow 04/06/2018 02580 ECHO Transthoracic, Real-Time 2D With Doppler And Color Completed Flow 11/22/2017 46091 EKG Tracing & Interpretation Completed 04/26/2017 89018 EKG Tracing & Interpretation Completed 10/11/2016 13412 EKG Tracing & Interpretation Completed 10/16/2015 59792 EKG Tracing & Interpretation Completed 10/10/2014 04511 EKG Tracing & Interpretation Completed 10/03/2013 22584 EKG Tracing & Interpretation Completed 02/26/2012 59512 EKG, Interpretation Only Completed 02/26/2012 89872 ECHO Transthorasic Realtime 2D W Doppler & Color Flow Completed Hosp 02/26/2012 27701 Pulse Wave/Continuous-Interp.RPT Completed 02/26/2012 02340 Color Flow Doppler/Interp & Reprt Completed 02/26/2012 49676 Left Health Catheterization W/Inj For Left Completed Ventriculography,S&I 02/26/2012 81561 Cath PLMT&NJX L Ventriculog Img S&I Completed 02/26/2012 65449 Left Heart Cath. 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 I10 I25.10 Office Visit 06/29/2018 9:00a [facility] Wyatt Terry, 44123 I10 M.DTed I25.10 I47.2 Office Visit 04/02/2018 3:15p [facility] Oswaldo Oteor, 99930 Z86.73 [facility] M.D. R42 R41.82 R41.1 Office Visit 03/20/2018 10:20a [facility] [place] [address] I10 [place] E78.00 Office Visit 02/26/2018 3:30p [facility] Oswaldo Otero M.D. 00735 R42 [facility] G31.84 R53.82 Office Visit 11/22/2017 2:00p [facility] Wyatt Terry, 69744 I25.10 Saima Riley.DTed R94.31 Office Visit 11/16/2017 2:00p [facility] - Pj Nguyen, 60024 R42 [place] Office Visit 09/18/2017 2:00p [facility] - Pj Nguyen, 13265 I10 [place] I25.10 E78.00 E03.9 Office Visit 09/01/2017 10:20a [facility] Pj Nguyen, 92420 G31.84 - [place] Office Visit 07/14/2017 8:00a [facility] M.D. 74483 M25.551 C.MAshley M16.11 Office Visit 06/02/2017 11:00a [facility] M.D. 45164 M25.551 C.MAshley M16.11 Office Visit 04/26/2017 10:20a [facility] Pj Nguyen, 05765 R42 - [place] Office Visit 02/27/2017 11:20a [facility] Pj Nguyen, 30361 H61.21 - [place] Office Visit 10/11/2016 1:15p [facility] Wyatt Terry, 60519 I25.10 [facility] Genna I10 Office Visit 09/21/2016 9:15a [facility] M.D. 03698 M54.16 C.M.A. M25.552 Office Visit 09/15/2016 2:00p [facility] - Pj Nguyen, 57144 I10 [place] I25.10 E78.00 E03.9 Office Visit 09/05/2016 1:45p [facility] M.D. 14906 M16.12 C.M.A. M79.652 M17.12 M25.562 Z96.651 M54.32 Office Visit 04/13/2016 1:40p [facility] Pj Nguyen, 56487 S91.331A - [place] S91.331D Office Visit 10/16/2015 3:00p [facility] Wyatt Terry, 24217 I10 Genna I25.10 R94.31 Office Visit 09/09/2015 1:00p [facility] - Pj Nguyen, 22456 I10 [place] I25.10 E03.9 Z23 E78.0 Office Visit 07/13/2015 3:00p [facility] M.D. 30593 726.5 C.M.A. 715.15 Office Visit 06/12/2015 8:00a [facility] M.D. 98713 715.15 C.M.A. 726.5 715.35 Office Visit 04/09/2015 4:00p [facility] Pj Nguyen, 90251 789.9 - [place] Office Visit 10/10/2014 9:45a [facility] Wyatt Terry, 17323 414.01 Insurance Risk Surveyor M.DTed 401.1 Office Visit 09/08/2014 10:00a [facility] - Siva Dixon, NAZARIO 82967 401.1 [place] 272.0 244.9 414.01 Office Visit 10/03/2013 12:00p [facility] [place], 31052 414.01 Insurance Risk Surveyor M.DTed 401.1 Office Visit 09/13/2013 11:40a [facility] Pj Nguyen, 04701 388.2 - [place] M.Marla Office Visit 09/06/2013 10:20a [facility] Pj Nguyen, 94423 401.1 - [place] 244.9 414.01 Office Visit 08/05/2013 11:40a [facility] Pj Nguyen, 89543 465.9 - [place] M.Marla Office Visit 02/07/2013 11:00a [facility] Pj Nguyen, 04053 911.0 - [place] E906.0 Office Visit 10/03/2012 1:30p [facility] Wyatt Terry, 93165 414.01 Insurance Risk Surveyor M.D. Office Visit 08/31/2012 9:00a [facility] Pj Nguyen, 17146 401.1 - [place] 414.01 244.9 465.9 Office Visit 02/29/2012 9:00a [facility] Pj Nguyen, 63857 414.01 - [place] 401.1 244.9 Office Visit 02/27/2012 3:00p [facility] Nayantaybeh S. Leighton, 91428 794.31 M.D. 410.71 401.1 272.4 Office Visit 02/26/2012 3:12p [facility] Qutaybeh S. Leighton, 16673 794.31 M.D. 410.71 401.1 272.4 786.50 Office Visit 02/25/2012 3:14p [facility] Qutaybeh S. Leighton, 21864 794.31 M.D. 410.71 401.1 786.50 780.4 Office Visit 09/16/2011 9:20a DO Not Use Insurance Risk Surveyor AT [place]fr[place] DTed [place], 62880 466.0 [facility] M.D.,FACP 372.30 Office Visit 08/01/2011 9:20a DO Not Use Insurance Risk Surveyor AT [facility], 84361 401.1 [place] M.D. 530.81 244.9 300.09 724.2 V04.81 Office Visit 01/31/2011 2:20p DO Not Use Insurance Risk Surveyor AT [facility], 63310 401.1 [place] M.D. 724.2 530.81 300.09 244.9 Office Visit 10/19/2010 11:40a DO Not Use Insurance Risk Surveyor AT [facility], 97897 008.69 [place] M.D. 300.01 Office Visit 09/29/2010 3:40p DO Not Use Insurance Risk Surveyor AT [facility], 67745 300.01 [place] M.D. Office Visit 09/21/2010 2:40p DO Not Use Insurance Risk Surveyor AT [facility], 58208 599.60 [facility] M.D. 276.1 780.52 Office Visit 09/06/2010 2:20p DO Not Use Insurance Risk Surveyor AT [facility], 37338 724.2 [place] M.D. Office Visit 07/08/2010 2:20p DO Not Use Insurance Risk Surveyor AT [facility], 76991 401.1 [facility] M.D. 530.81 244.9 272.2 300.09 Office Visit 01/12/2010 1:30p DO Not Use Insurance Risk Surveyor AT [facility], 77536 401.1 [facility] M.D. 244.9 530.81 Office Visit 10/07/2009 3:45p DO Not Use Insurance Risk Surveyor AT [facility], 62325 530.81 [facility] M.D. 300.09 Office Visit 09/03/2009 2:15p DO Not Use Insurance Risk Surveyor AT [facility], 69081 530.81 [facility] M.D. Office Visit 08/03/2009 3:00p DO Not Use Insurance Risk Surveyor AT [facility], 69685 530.81 [facility] M.D. Office Visit 07/13/2009 2:00p [facility], 01535 401.1 [facility] M.D. 244.9 787.1 724.2 Office Visit 04/06/2009 11:00a [facility], 94266 V72.81 [facility] M.D. 790.92 401.1 244.9 724.2 Office Visit 01/13/2009 1:30p [facility], 95886 244.9 [facility] M.D. 724.2 401.1 Office Visit 09/10/2008 3:15p [facility], 65158 724.2 [facility] M.D. 401.1 Office Visit 07/16/2008 10:00a [facility], 47629 472.0 [facility] M.D. 401.1 Office Visit 01/14/2008 9:00a [facility], 44184 724.2 [facility] M.D. 244.9 401.1 789.00 Office Visit 08/09/2007 3:15p [facility], 24202 466.0 [facility] M.D. Office Visit 05/24/2007 1:30p [facility], 16380 366.9 [facility] M.D. 401.1 244.9 Plan of Care Future Appointment(s):10/26/2018 10:15 am - Oswaldo Otero M.D. at [facility]09/25/2018 11:00 am - Ishaan Manriquez NP at [facility]07/27/2018 - [place] M.D.I47.2 Ventricular tachycardiaFollow up:1 yearI10 Essential (primary) aijwxmzgwymyV67.10 [facility] [place] coronary artery w/o ang pctrs
--- OUTSIDE RECORDS SUMMARY | 2018-08-03 16:11 | XMS REPORT ---
:1930 External Reference #:[id number] Author Organization [facility] Address [address] [place] [address] Phone [phone] Care Team Providers Name Role Phone Eva Mccabe MD Primary Care Physician Unavailable Payers Type Date Identification Numbers Payment Provider Subscriber Medicare Primary Effective: Policy Number: Medicare Manjeet Irbycaroleanita 1994 [id number] PayID: [id number] [facility] [address] [place] [address] [employer] Part B Policy Number: [id number] [facility] Health Benefit Plan Manjeet Naidu Latrell Group Number: [id number] [facility] PayID: [id number] [place] [address] Advance Directives Type Date Description Status Comment [...] Causes () - age 89. ? 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 Fish Oil Active Capsules 1000mg 1 by mouth Unknown every day Areds Active bid Unknown Glucosamine Active 1100 1 daily Unknown Chondroitin Complex Meloxicam Active Tablets 15mg 1 by mouth Unknown / every day Catheteters Active use 3 times Unknown / daily Levoxyl Active Tablets 75mcg 90tab Take 1 Ishaan s Tablet By NAZARIO Manriquez Mouth Every Day Meloxicam 06/02 Hx Tablets 15mg 30tab take 1 tab M25.551 Gris s by mouth Igor, - with food M.D. 09/17 once a day /2016 Medrol 09/21 Hx TBPK 4mg 21uni as directed M54.16 Gris ts Igor, - M.DTed 10/10 Naproxen 06/12 Hx Tablets 500mg 60tab not taking 715.15 Gris s 1 tablet Igor, - with food M.D. 08/30 by mouth /2015 once a day Chlorothiazide 11/29 Hx Tablets 500mg 90tab Take 1 Pj E. /2013 s Tablet By Wendy, - Mouth Every M.D. Levothyroxine 01/09 Hx Tablets 75mcg 90tab Take 1 Pj E. s Tablet By Wendy, - Mouth Every M.D. Chlorothiazide 01/09 Hx Tablets 500mg 90tab Take 1 Pj E. /2011 s Tablet By Wendy, - Mouth Every M.D. Guiatuss ac 09/16 Hx Syrup 100-10mg/ 200ml 5-10 ml po 466.0 Wilfrido 5ML qid prn Zara Moran M.D.,[facility] 02/27 Azithromycin 09/16 Hx Tablets 250mg 6tabs 2 qd for 1 466.0 Wilfrido day, then 1 DTed Bullock - qd Genna,[facility] 02/27 Ilotycin 09/16 Hx Ointment 5mg/GM 1tube topical 372.30 Wilfrido both eye Marla Bullock, - 5x/day Genna,FACP 02/27 Glucosamine 08/01 Hx Capsules 500mg 1 po bid Pj Santillan /2010 Zara Nguyen M.D. 09/17 Jointflex 08/01 Hx Cream 3.1% Pj Santillan Zara Nguyen M.D. 09/08 Remeron 10/05 Hx Tablets 15mg 30tab 1 cap hs s Abdi Zuñiga M.D. 01/31 Paxil 09/29 Hx Tablets 20mg 30tab / tab x 1 300.01 s week then 1 Abdi - tab daily , Genna 10/05 Ambien 09/21 Hx Tablets 10mg 30tab / to 1 780.52 s tab hs prn Abdi Zuñiga M.D. 10/05 Buspirone HCL 10/07 Hx Tablets 10mg 90tab 1 1/ po Pj Ted s bid Zara Nguyen [...] Capsules 1 PO qd Pj Santillan dro /2007 Zara Nguyen M.D. 08/01 Centrum Silver 09/10 Hx Tablets 1 PO qd Pj Santillan /2007 Zara Nguyen M.D. 02/27 Fluticasone 07/16 Hx Suspension 50mcg/Act 1unit 1 spray Pj ETed Propionate s each Wendy, Zara nostril in M.DTed 01/13 Naproxen 10/01 Hx Tablets 500mg 90tab 1 po qd to Pj Santillan s tid prn Zara Nguyen M.D. 02/28 Zithromax Z-Bo 08/09 Hx Tablets 250mg 1Pack as per Pj Santillan directions Zara Nguyen M.D. 07/16 Naproxen 05/24 Hx Tablets 500mg 90tab 1 PO qd Pj Santillan s Zara Nguyen M.D. 10/01 Chlorthiazide Hx 500mg. 90uni 1 po qd Pj E. / ts Zara Nguyen M.D. 09/08 Diovan Hx [...] Indications Ordering Provider Inj, Administered Injection Kelsea Regadenoson, 018 Thuman, CHESS INSTRUCTOR 0.1 MG Technetium TC Administered Injection Wyatt D. 99M 018 Genna Terry Tetrofosmin, Per Unit Dose Up To 40 Millicuries Technetium TC Administered Injection Wyatt D. 99M 018 Genna Terry Tetrofosmin, Per Unit Dose Up To 40 Millicuries Influenza Administered Injection Unknown Virus Vaccine 015 Immunizations CPT Code Status Date Vaccine Lot # [id number] Given 07/14/2017 Influenza Virus Vaccine, Quadrivalent, Split, [id number] Preservative Free 10564 Given 09/09/2015 Tdap - Tetanus/Diptheria/Acellular Pertussis [id number] 62501 Given 07/30/2014 Influenza Virus Vaccine, Quadrivalent, Split, Preservative Free 47068 Given 03/06/2014 Pneumococcal Conjugate Vaccine 13 Valent For [id number] Intramuscular Use [id number] Given 08/01/2011 Fluzone Vaccine [id number] 57462 Given 09/03/2010 Influenza Virus 3Yrs & Over [id number] 28114 Given 08/20/2008 Influenza Virus 3Yrs & Over 61739 Given 08/28/2007 Influenza Virus 3Yrs & Over 90575 Given 07/20/2004 Td (History By Patient) 62087 Given Unknown Influenza Virus Vaccine, Quadrivalent, Split Virus, Im Use Vital Signs Date Vital Result Comment 07/24/2018 Height 67 inches 5'7" Weight 156.00 [...] Color SHEYLA Yellow Appearance-Urine CLEAR Clear Specific Pine Top-Ur 1.023 1.010-1.030 Esterase-Urine TRACE Negative Nitrite NEGATIVE Negative Kpumtfxxozro-Ra-DGC NEGATIVE Negative Protein-Urine NEGATIVE Negative PH-Urine 5.0 [...] Color YELLOW Yellow Appearance-Urine CLEAR Clear Specific [place]-Ur 1.013 1.010-1.030 Esterase-Urine TRACE Negative Nitrite NEGATIVE Negative Ouoyghmbulnm-Qr-KYE NEGATIVE Negative Protein-Urine NEGATIVE Negative PH-Urine 5.0 [...] developed and its performance characteristics determined by [facility] in a manner consistent with CLIA requirements. This test has not been cleared or approved by the U.S. Food and Drug Administration. Test Performed by: [address] [address] 8 Because ethnic data is not always [...] mg/dL 41 FASTING 42 RUN DATE: 08/28/13 [facility] LAB LIVE PAGE 1 RUN TIME: [address] [place] [address] Specimen Inquiry Name: MANJEET CABRERA : [address]: Stephen Damon MD Acct: [id number] Unit: [id number] AGE: 83 Location: [facility] Re08/25/13 SEX: M Status: DEP ER SPEC: [id number] ROSALIE: 08/25/[address]: Stephen Damon MD REQ: [id number] RECD: 08/26/13 STATUS: FRANCESCO REED DR: Pj Nguyen III, MD _ SOURCE: URINE SPDESC: ORDERED: Urine Culture Procedure Result Verified Site Urine Culture Final 08/28/13- 0941 ML Organism 1 ENTEROBACTER AEROGENES [place] Count >100,000 (Many) CFU/ML 1. ENTEROBACTER AEROGENES [...] performed at Main Lab DEPARTMENT OF PATHOLOGY, [address] [place] [address] Sebastián Lujan M.D. Director [facility] Permit #[id number] Desirable: Less than 200 MG/DL Borderline-High [...] 0.06 ng/mL NOT SUPPORTIVE OF DIAGNOSIS OF NC 0.06 - 0.50 ng/ml INDETERMINATE: SUGGEST SERIAL STUDIES IF CLINICALLY INDICATED. Greater than 0.5 ng/mL CONSISTENT WITH DIAGNOSIS OF NC . 50 Anion gap measurement may be of limited value in the presence of any alkalosis, especially in a combined acid base disorder. . 51 A metabolite of Naproxen, O-desmethylnaproxen, has been shown to interfere with the Jendraronik-Hinsdale method for measuring total bilirubin. Samples from [...] H Check Failed 54 RUN DATE: 02/28/12 [facility] NMI LIVE PAGE 1 RUN TIME: 1133 Specimen Inquiry RUN USER: INTERFACE Name: MANJEET CABRERA [facility]#: [id number] Status: DIS IN Re02/25/12 Age/Sex: 82/M Unit#: [id number] Location: ICU : [birth year] SPEC #: [id number] ROSALIE: 02/25/12 STATUS: COMP REQ #: [id number] RECD: 02/25/[address]: Lars June MD SOURCE: NOSE ENTR: 02/25/12-[address]: Wendy FERNANDEZ MD, [facility]: ORDERED: MRSA/VRE CULT ACT WKST: B 02/28/12 #1 Procedure Result Verified Site > MRSA/VRE CULTURE Final 02/28/12- 1133 ML NO MRSA ISOLATED - [facility] Permit #[id number] [facility] Dates [facility] [address] DEPARTMENT OF PATHOLOGY, [facility] [place]ES [place], [place] [address] [facility] Permit #[id number] Genna Hernandez M.D. Pattern Room Attendant 55 CHOLESTEROL INTERPRETATION: Desirable: Less than 200 [...] has been shown to interfere with the Viral-Hinsdale method for measuring total bilirubin. Samples from [...] SERUM LEVELS OF PSA MEASURED USING THE [employer] ACCESS HYBRITECH IMMUNOASSAY SHOULD NOT BE INTERPRETED [...] change was based on recommendations from the [place] [employer]. 73 A metabolite of Naproxen, [...] is requested. Contact the Microbiology Department at [phone]. TEST LIMITATIONS: As with all diagnostic procedures, [...] change was based on recommendations from the [place] [employer]. 95 Because ethnic data is [...] change was based on recommendations from the [place] [employer]. 98 Because ethnic data is [...] change was based on recommendations from the [place] [employer]. 101 Because ethnic data is [...] change was based on recommendations from the [place] [employer]. 104 Please note change in [...] LEVELS OF PSA MEASURED USING THE [employer] ACCESS HYBRITECH IMMUNOASSAY SHOULD NOT BE INTERPRETED [...] SERUM LEVELS OF PSA MEASURED USING THE [employer] ACCESS HYBRITECH IMMUNOASSAY SHOULD NOT BE INTERPRETED [...] change was based on recommendations from the [place] [employer]. 122 Please note change in reference range effective 08 . 123 H H Check Failed 124 NEGATIVE FOR GROUP A BETA STREPTOCOCCUS 125 * SERUM LEVELS OF PSA MEASURED USING THE [employer] ACCESS HYBRITECH IMMUNOASSAY SHOULD NOT BE INTERPRETED [...] Procedures Date CPT Code Description Status 07/13/2018 60931 Stress Test Completed 07/13/2018 87536 Myocardial Perfusion Imaging Tomographic (Spect) Completed Multiple Studies 05/18/2018 80109 EEG Recording Awake & Drowsy Completed 04/13/2018 08346 Mobile Cardiovascular Telemetry Over 24 HR Up To 30 Completed Days 04/06/2018 08612 ECHO Transthoracic, Real-Time 2D With Doppler And Color Completed Flow 04/06/2018 67409 ECHO Transthoracic, Real-Time 2D With Doppler And Color Completed Flow 11/22/2017 66661 EKG Tracing & Interpretation Completed 04/26/2017 06550 EKG Tracing & Interpretation Completed 10/11/2016 91193 EKG Tracing & Interpretation Completed 10/16/2015 30089 EKG Tracing & Interpretation Completed 10/10/2014 51790 EKG Tracing & Interpretation Completed 10/03/2013 93674 EKG Tracing & Interpretation Completed 02/26/2012 46783 EKG, Interpretation Only Completed 02/26/2012 00178 ECHO Transthorasic Realtime 2D W Doppler & Color Flow Completed Hosp 02/26/2012 68160 Pulse Wave/Continuous-Interp.RPT Completed 02/26/2012 16960 Color Flow Doppler/Interp & Reprt Completed 02/26/2012 67654 Left Health Catheterization W/Inj For Left Completed Ventriculography,S&I 02/26/2012 13410 Cath PLMT&NJX L Ventriculog Img S&I Completed 02/26/2012 01689 Left Heart Cath. Incl S/I Coronaries, Angio S/I V Gram Completed If Done 02/25/2012 81370 EKG, Interpretation Only Completed 01/12/2010 38932 EKG Tracing & Interpretation Completed 04/06/2009 44036 EKG Tracing & Interpretation Completed 01/13/2009 30820 EKG Tracing & Interpretation Completed 04/29/2003 Colonoscopy Completed Encounters Type Date Location Provider CPT E/M Dx Office Visit 07/24/2018 [facility] Oswaldo Otero M.D. 01461 I47.2 11:00a [facility] R41.82 R41.1 R42 Office Visit 06/29/2018 9:00a [facility] Wyatt Terry, 88147 I10 Genna I25.10 I47.2 Office Visit 04/02/2018 3:15p [facility] Oswaldo Otero, 37292 Z86.73 [facility] Rosemary.DTed R42 R41.82 R41.1 Office Visit 03/20/2018 10:20a [facility] Internal Medicine - Ishaan Manriquez, NAZARIO 52919 I10 [place] E78.00 Office Visit 02/26/2018 3:30p [facility] Oswaldo Otero M.D. 51790 R42 [facility] G31.84 R53.82 Office Visit 11/22/2017 2:00p [facility] Wyatt Terry, 57030 I25.10 [facility] Genna R94.31 Office Visit 11/16/2017 2:00p [facility] Internal Medicine - Pj Nguyen, 11239 R42 Jeff [place] Office Visit 09/18/2017 2:00p [facility] Internal Medicine - Pj Nguyen, 88027 I10 [place] I25.10 E78.00 E03.9 Office Visit 09/01/2017 10:20a [facility] Medicine Pj Nguyen, 30605 G31.84 - Jeff [place] Office Visit 07/14/2017 8:00a [facility] M.D. 80443 M25.551 C.MTedATed M16.11 Office Visit 06/02/2017 11:00a [facility] M.D. 66968 M25.551 C.M.ATed M16.11 Office Visit 04/26/2017 10:20a [facility] Pj Nguyen, 66032 R42 - Jeff [place] Office Visit 02/27/2017 11:20a [facility] Internal Medicine Pj Nugyen, 98527 H61.21 - Jeff [place] Office Visit 10/11/2016 1:15p [facility] Wyatt Terry, 33296 I25.10 [facility] Genna I10 Office Visit 09/21/2016 9:15a [facility] M.D. 28064 M54.16 C.M.ATed M25.552 Office Visit 09/15/2016 2:00p [facility] Medicine Pj Nguyen, 12288 I10 Jeff [place] I25.10 E78.00 E03.9 Office Visit 09/05/2016 1:45p [facility] M.D. 94741 M16.12 C.M.ATed M79.652 M17.12 M25.562 Z96.651 M54.32 Office Visit 04/13/2016 1:40p [facility] Internal Medicine Pj Nguyen, 58767 S91.331A - Eloina [place] S91.331D Office Visit 10/16/2015 3:00p [facility] Wyatt Terry 85742 I10 Genna I25.10 R94.31 Office Visit 09/09/2015 1:00p [facility] Internal Medicine Pj Nguyen, 11018 I10 Eloina [place] I25.10 E03.9 Z23 E78.0 Office Visit 07/13/2015 3:00p [facility] M.D. 28251 726.5 C.M.A. 715.15 Office Visit 06/12/2015 8:00a [facility] M.D. 28925 715.15 C.M.A. 726.5 715.35 Office Visit 04/09/2015 4:00p [facility] Internal Medicine Pj Nguyen, 62807 789.9 - Eloina [place] Office Visit 10/10/2014 9:45a [facility] Wyatt Terry 55831 414.01 Saima [place] 401.1 Office Visit 09/08/2014 10:00a [facility] [place] [address] 401.1 Eloina 272.0 244.9 414.01 Office Visit 10/03/2013 12:00p [facility] Wyatt Terry 10868 414.01 Saima [place] 401.1 Office Visit 09/13/2013 11:40a [facility] Internal Medicine Pj Nguyen, 21215 388.2 - Eloina [place] Office Visit 09/06/2013 10:20a [facility] Medicine Pj Nguyen, 32440 401.1 - Eloina [place] 244.9 414.01 Office Visit 08/05/2013 11:40a [facility] Medicine Pj Nguyen, 47225 465.9 - Eloina [place] Office Visit 02/07/2013 11:00a [facility] Medicine Pj Nguyen, 87192 911.0 - Eloina [place] E906.0 Office Visit 10/03/2012 1:30p [facility] Wyatt Terry, 77315 414.01 Saima [place] Office Visit 08/31/2012 9:00a [facility] Internal Medicine Pj Nguyen, 32886 401.1 - Eloina [place] 414.01 244.9 465.9 Office Visit 02/29/2012 9:00a [facility] Internal Medicine Pj Nguyen, 54483 414.01 - Eloina [place] 401.1 244.9 Office Visit 02/27/2012 3:00p [facility] Qutaybeh S. Deniseydah, 26917 794.31 M.D. 410.71 401.1 272.4 Office Visit 02/26/2012 3:12p [facility] Qutaybeh S. Maghaydah, 94687 794.31 M.D. 410.71 401.1 272.4 786.50 Office Visit 02/25/2012 3:14p [facility] Qutaybeh S. Maghaydah, 19799 794.31 M.D. 410.71 401.1 786.50 780.4 Office Visit 09/16/2011 9:20a DO Not Use [employer]crete Ho[employer] Operator AT Wilfrido Bullock, 40668 466.0 Omar [place]ail,FACP 372.30 Office Visit 08/01/2011 9:20a DO Not Use Concrete Hopper Operator AT Pj Nguyen, 61313 401.1 Omar [place] 530.81 244.9 300.09 724.2 V04.81 Office Visit 01/31/2011 2:20p DO Not Use Concrete Hopper Operator AT [facility], 91309 401.1 [facility] M.D. 724.2 530.81 300.09 244.9 Office Visit 10/19/2010 11:40a DO Not Use Concrete Hopper Operator AT [facility], 69584 008.69 [facility] M.D. 300.01 Office Visit 09/29/2010 3:40p DO Not Use Concrete Hopper Operator AT [facility], 35958 300.01 [facility] M.D. Office Visit 09/21/2010 2:40p DO Not Use Concrete Hopper Operator AT [facility], 63992 599.60 [facility] M.D. 276.1 780.52 Office Visit 09/06/2010 2:20p DO Not Use Concrete Hopper Operator AT [facility], 14009 724.2 [facility] M.D. Office Visit 07/08/2010 2:20p DO Not Use Concrete Hopper Operator AT [facility], 94524 401.1 [facility] M.D. 530.81 244.9 272.2 300.09 Office Visit 01/12/2010 1:30p DO Not Use Concrete Hopper Operator AT [facility], 66975 401.1 [facility] M.D. 244.9 530.81 Office Visit 10/07/2009 3:45p DO Not Use Concrete Hopper Operator AT [facility], 35010 530.81 [facility] M.D. 300.09 Office Visit 09/03/2009 2:15p DO Not Use Concrete Hopper Operator AT [facility], 76708 530.81 [facility] M.D. Office Visit 08/03/2009 3:00p DO Not Use Concrete Hopper Operator AT [facility], 34088 530.81 [facility] M.D. Office Visit 07/13/2009 2:00p [facility], 81840 401.1 [facility] M.D. 244.9 787.1 724.2 Office Visit 04/06/2009 11:00a [facility], 45481 V72.81 [facility] M.D. 790.92 401.1 244.9 724.2 Office Visit 01/13/2009 1:30p [facility] 80482 244.9 [facility] M.D. 724.2 401.1 Office Visit 09/10/2008 3:15p [facility], 08440 724.2 [facility] M.D. 401.1 Office Visit 07/16/2008 10:00a [facility], 13116 472.0 [facility] M.D. 401.1 Office Visit 01/14/2008 9:00a [facility], 12936 724.2 [facility] M.D. 244.9 401.1 789.00 Office Visit 08/09/2007 3:15p [facility], 73817 466.0 [facility] M.D. Office Visit 05/24/2007 1:30p [facility], 17304 366.9 [facility] M.D. 401.1 244.9 Plan of Care Future Appointment(s):10/26/2018 10:15 am - Oswaldo Otero M.D. at [facility]07/27/2018 10:30 am - Wyatt Terry M.D. at [facility]09/25/2018 11:00 am - Ishaan Manriquez NP at [facility] Internal Medicine [facility]07/24/2018 - Oswaldo Otero M.D.I47.2 Ventricular tachycardiaFollow up:Follow up in 12 weeksRecommendations:Keep a calendar of events Follow up with cardiology Call me with any new issues or concerns Drive short distances onlyR41.82 Altered mental status, ihvtytjukzfM10.1 Anterograde egrfvssV22 Dizziness and giddiness
[2018-08-03 16:14] VITALS: BP 153/75
--- NOTE | 2018-08-03 16:32 | UC ---
Skin Complaint HPI - HPI Summary HPI Summary: 88 y/o male presents to the urgent care c/o rash in his chest and Rt arm w/ itchiness since yesterday. Pt report he had the influenza vaccines placed yesterday in the morning. Then rash the afternoon rash developed. he can't recall what triggered the rash. He has not changed detergents or wear new body lotion. He has not eaten anything different or outside. he has not been out in his garden. He has applied Caladryl lotion to alleviate symptoms Pt denies pain , fever, throat swelling, hoarseness, SOB, chest pain, abdominal pain, N/V/D. - History of Current Complaint Chief Complaint: UCSkin Time Seen by Provider: 08/03/18 16:30 Stated Complaint: RASH Hx Obtained From: Patient Onset/Duration: Gradual Onset, Lasting Days - 1 day, Still Present Skin Exposure Onset/Duration: Days Ago - 1 day Onset Severity: Mild Current Severity: Mild Pain Intensity: 0 Pain Scale Used: 0-10 Numeric Location: Discrete - both sides of upper chest and Rt arm Character: Pruritus, Redness Aggravating Factor(s): Clothing, Touch Alleviating Factor(s): OTC Creams/Salves - caladryl lotion Associated Signs & Symptoms: Positive: Rash. Negative: Difficulty Breathing, Fever, Wheezing, Hoarseness, Throat Tightening, Tenderness Related History: Possible Reaction to: Environmental Exposure - Allergy/Home Medications Allergies/Adverse Reactions: Allergies Allergy/AdvReac Type Severity Reaction Status Date / Time Penicillins Allergy Hives Verified 08/03/18 16:14 Home Medications: Home Medications Areds 1 dose PO BID 08/03/18 [History Confirmed 08/03/18] Chlorothiazide TAB* [Diuril TAB*] 250 mg PO DAILY 08/03/18 [History Confirmed ] Glucosam/Chondr/Collagn/Hyalur [Glucosamine & Chondroitin Cap] 1 cap PO DAILY [History Confirmed 08/03/18] Meloxicam [Mobic] 15 mg PO DAILY 08/03/18 [History Confirmed 08/03/18] Review of Systems Constitutional: Negative Skin: Rash - upper chest and Rt arm w/ itchiness Eyes: Negative ENT: Negative Respiratory: Negative Cardiovascular: Negative Gastrointestinal: Negative Genitourinary: Negative Motor: Negative Neurovascular: Negative Musculoskeletal: Negative Neurological: Negative Psychological: Negative Is Patient Immunocompromised?: No All Other Systems Reviewed And Are Negative: Yes PMH/Surg Hx/FS Hx/Imm Hx Previously Healthy: Yes Endocrine History: Hypothyroidism, Dyslipidemia Cardiovascular History: Hypertension - Surgical History Surgical History: Yes Surgery Procedure, Year, and Place: spinal stenosis - surgical repair -at 79 years old. TURP. left knee surg x2. fco - Family History Known Family History: Positive: Cardiac Disease, Hypertension - Social History Occupation: Retired Lives: With Family Alcohol Use: None Substance Use Type: None Smoking Status (MU): Never Smoked Tobacco - Immunization History Most Recent Tetanus Shot: 02/04/13 Physical Exam - Summary Physical Exam Summary: Vital Signs Reviewed: Yes General: well developed, well nourished male sitting in the examining table w/o any apparent distress. Eyes: Positive: Conjunctiva Clear - PERRLA, EOMI ENT: Positive: Normal ENT inspection, Hearing grossly normal, Pharynx normal, TMs normal Neck: Positive: Supple, Nontender, No Lymphadenopathy Respiratory: Positive: Chest nontender, Lungs clear, Normal breath sounds Cardiovascular: Positive: RRR, No Murmur, Pulses Normal Abdomen Description: Positive: Nontender, No Organomegaly, Soft. Negative: CVA Tenderness (R), CVA Tenderness (L) Bowel Sounds: Positive: Present Musculoskeletal: Positive: Strength Intact, ROM Intact, No Edema Neurological Exam: Normal Psychological Exam: Normal Skin: Positive: rashes - both sides of chest and RT wrist w/ scattered discrete maculopapular eruption w/ mild signs of excoriation. no drainage observed, non tender to palpation. Triage Information Reviewed: Yes Vital Signs: Initial Vital Signs Temp 96.7 F 08/03/18 16:08 Pulse 57 08/03/18 16:08 Resp 16 08/03/18 16:08 BP 153/75 08/03/18 16:08 Pulse Ox 99 08/03/18 16:08 Course/Dx - Course Course Of Treatment: 88 y/o male presents to the urgent care c/o rash in his chest and Rt arm w/ itchiness since yesterday. Pt report he had the influenza vaccines placed yesterday in the morning. Then rash the afternoon rash developed. he can't recall what triggered the rash. He has not changed detergents or wear new body lotion. He has not eaten anything different or outside. he has not been out in his garden. He has applied Caladryl lotion to alleviate symptoms Pt denies pain, fever, throat swelling, hoarseness, SOB, chest pain, abdominal pain, N/V/D. Hx obtained. Pt w/ both sides of chest and RT wrist w/ scattered maculopapular eruption w/ mild signs of excoriation, no drainage observed, non tender to palpation on examination. Pt w/ probably contact dermatitis on both sides of upper chest and RT forearm due to unknown allergen on examination. Pt Rx Prednisolone PO and hydrocortisone, and Bendryl PO as directed below. PT advised to return to the urgent care or f/u w/ PCP if not improvement of symptoms. D/C instructions explained. Pt's BP is elevated today advised to decrease salt in diet, monitor BP and f/u with PCP for further management. PT understood and agreed w/ plan of care. - Differential Diagnoses - Skin Complaint Differential Diagnoses: Allergic Reaction, Cellulitis, Contact Dermatitis, Local Allergic Reaction, Medication; Adverse Reaction, Urticaria - Diagnoses Provider Diagnoses: 1- Contac dermatitis. 2- Uncontrolled HTN. 3- Pruritus Discharge - Sign-Out/Discharge Documenting (check all that apply): Patient Departure - D/c home All imaging exams completed and their final reports reviewed: No Studies - Discharge Plan Condition: Stable Disposition: HOME Prescriptions: diPHENhydraMINE PO* [Benadryl PO 25 MG TAB*] 25 mg PO BEDTIME PRN #12 tab PRN Reason: pruritus Hydrocortisone 1% CREAM(NF) 1 applic TOPICAL BID #1 applic predniSONE TAB* [Deltasone 20 MG TAB*] 20 mg PO DAILY #11 tab Patient Education Materials: Contact Dermatitis (ED), Low-Sodium Diet (ED) Referrals: Ishaan Manriquez NP [Primary Care Provider] - 3 Days Yen Arevalo [Medical Doctor] - If Needed Additional Instructions: 1-Please take Prednisone PO taper dose as directed to alleviate symptoms 2- Take Benadryl PO at bed time to alleviate itchiness. Apply Hydrocortisone topical cream as directed. Avoid exposure to the sun. Avoid driving while taking Benadryl PO 3-If symptoms do not improve or worsen please f/u with your PCP or [facility] in 3 days for further evaluation and treatment. 4- If symptoms worsen and you develop SOB or difficulty breathing please go immediately to the ER for further management. 5-Your BP is elevated today. please decrease salt in your diet, monitor BP and if it continues to be elevated please f/u with your PCP for further management - Billing Disposition and Condition Condition: STABLE Disposition: Home - Attestation Statements Provider Attestation: I was available for consult. This patient was seen by the DAVID. The patient was not presented to, seen by, or examined by me. -Guillaume
== END 2018-08-03 17:10 | disposition home or self-care (01) ==
LOC: UCEAST 16:03
DX: L25.9 Unspecified contact dermatitis, unspecified cause (principal); L29.9 Pruritus, unspecified; I10 Essential (primary) hypertension; Z79.899 Other long term (current) drug therapy; Z88.0 Allergy status to penicillin
CPT/HCPCS: 99212; G0463